=== PATIENT | male | born 1965 | race Caucasian/White ===

== ENCOUNTER 2023-08-24 08:10 | Inpatient (IN) | payer SELFPAY ==
[2023-08-24] VITALS (34 sets, daily range): BP systolic 71–156; BP diastolic 52–121; PULSE 90–202; RESP 16–42; TEMP 36–38.2; O2SAT 91–100; BMI 27.0; BMI 27.5
--- NOTE | 2023-08-24 08:28 | EKG12_ITS ---
Test Reason : ABD PAIN Blood Pressure : / mmHG Vent. Rate : 167 BPM Atrial Rate : 000 BPM P-R Int : 000 ms QRS Dur : 094 ms QT Int : 302 ms P-R-T Axes : 000 -36 103 degrees QTc Int : 503 ms Critical Test Result: High HR Atrial fibrillation with rapid ventricular response Left axis deviation Inferior infarct , age undetermined Abnormal ECG Confirmed by SALAS ARAGON, JUSTICE ([id number]), food expeditor ALICIA FITZGERALD ([id number]) on 08/25/2023 8:56:52 AM Referred By: Confirmed By:JUSTICE MARINA MD
--- NOTE | 2023-08-24 08:32 | EDS_ITS ---
HPI HPI - GI History of Present Illness Chief Complaint: Abd Pain Detail of Chief Complaint: Abdominal pain and hematemesis Informant: patient and friend Narrative Narrative: Patient brought to the emergency department by a friend today with complaint of of vomiting and generalized weakness. Patient is lost about 50 pounds in the last month. He was seen by his primary care physician and had apparently some blood work that showed an elevated WBC count and was told he might have stomach cancer apparently. Patient unable to keep liquids down. He states he has not eaten in 4 days. Generally feels weak. He tried to take some fluids and today. He denies any other medical problems although his friend says he has history of high cholesterol. Patient denies significant abdominal pain. He denies blood in the stool or black tarry stool. He states he has not vomited blood in several weeks. PFSH PFSH Allergy/AdvReac Type Severity Reaction Status Date / Time No Known Allergies Allergy Verified 08/24/23 08:11 Social History Smoking Status: Current every day smoker tobacco type: smokeless tobacco ROS ROS ED Review of Systems ROS Unobtainable: other Constitutional Constitutional ED: Reports lethargy; Denies chills, fever(s), sweats or weight loss Eyes Eyes: Denies blurry vision, change in vision or diplopia ENT ENT ED: Denies rhinorrhea or sore throat Cardiovascular Cardiovascular: Denies chest pain, orthopnea or racing heartbeat Respiratory/Chest Respiratory/Chest: Reports dyspnea and dyspnea on exertion; Denies cough, orthopnea or sputum Gastrointestinal Gastrointestinal: Reports nausea, vomiting and other Details: Hematemesis ; Denies abdominal pain or diarrhea Genitourinary Genitourinary ED: Denies dysuria, hematuria or urinary frequency Musculoskeletal Musculoskeletal: Denies arthralgias, back pain, myalgias or neck pain Integumentary Denies abscess, Abrasions or rash Neurologic Neurologic: Denies headache(s) or weakness Psychiatric Psychiatric: Denies anxiety, depression or suicidal thoughts Endocrine Endocrinology: Denies polydipsia, polyphagia or polyuria Hematologic/Lymphatic Hematologic/Lymphatic: Denies easy bleeding, easy bruising or lymphadenopathy Allergic/Immunologic Allergic/Immunologic ED: Denies mouth swelling, tongue swelling or urticaria EXAM Physical Exam Const Vital Signs: 08/24/23 08:12 08/24/23 08:15 08/24/23 09:00 Temperature 96.8 F L 98 F 98 F Temperature Source Temporal Temporal Oral Pulse Rate 94 190 H 115 H Respiratory Rate 18 26 H 18 Blood Pressure 71/52 L 138/109 H 111/89 H Blood Pressure Mean 58 118 96 Pulse Ox 91 99 100 Oxygen Delivery Method Room Air Room Air Nasal Cannula Oxygen Flow Rate (L/min) 2 08/24/23 08:38 08/24/23 08:41 08/24/23 08:41 Temperature Temperature Source Pulse Rate 156 H 190 H Respiratory Rate 19 H 26 H Blood Pressure 120/86 H 120/86 H Blood Pressure Mean 97 97 Pulse Ox Oxygen Delivery Method Oxygen Flow Rate (L/min) 08/24/23 08:45 08/24/23 09:00 08/24/23 10:01 Temperature 98 F 98 F Temperature Source Oral Oral Pulse Rate 167 H 163 H 157 H Respiratory Rate 22 H 20 H 20 H Blood Pressure 138/109 H 111/89 H 84/54 L Blood Pressure Mean 118 98 64 Pulse Ox 96 98 Oxygen Delivery Method Nasal Cannula Nasal Cannula Oxygen Flow Rate (L/min) 2 08/24/23 10:00 08/24/23 10:00 Temperature 98 F Temperature Source Oral Pulse Rate 166 H 160 H Respiratory Rate 20 H 20 H Blood Pressure 89/70 L 89/70 L Blood Pressure Mean 76 76 Pulse Ox 97 97 Oxygen Delivery Method Nasal Cannula Nasal Cannula Oxygen Flow Rate (L/min) 3 3 Positive well nourished and well developed Constitutional Narrative: Pale General Appearance ED: well developed and NAD HEENT Reports TM's clear and moist mucous membranes normocephalic and atraumatic; Negative for trauma or tenderness Tympanic Membrane ED: Yes TM's clear Eyes PERRL and EOMs intact bilaterally General Eye ED: Negative for pale conjunctiva or scleral icterus Neck no lymphadenopathy, supple and no JVD General: Negative for tenderness Chest Wall inspection of chest normal and palpation of chest normal Chest: Negative for tenderness Resp normal respiratory effort and clear to auscultation bilaterally Effort and Inspection: Negative for respiratory distress or pain with movement Auscultation: Negative for rhonchi, wheezes or diminished lung sounds Cardio regular rate, regular rhythm, S1 normal heart sound, S2 normal heart sound and no murmurs Peripheral Pulses: pulses 2+ throughout GI normal to inspection, nondistended, normoactive bowel sounds, soft to palpation, non-tender, non-distended and no masses Back/Spine no CVA tenderness and no thoracic nor lumbar tenderness Extremity normal to inspection General Extremety ED: Negative for edema General Extremity: Negative for edema Neuro oriented x3, CN's II-XII intact bilaterally, no sensory deficits noted and gait normal Sensorium / Orientation: awake, alert, oriented to person, oriented to place and oriented to time Motor Exam: strength 5/5 throughout and strength abnormal Psych mental status grossly normal Skin no rashes or lesions noted and no wounds MDM MDM MDM Narrative Medical decision making narrative: Patient had 2 large-bore IVs established. Repeat blood pressure now 138 systolic. Patient placed on a neurodiagnostic tech noted to be tachycardic. EKG obtained showed A-fib RVR with rate of 167 bpm. While observing patient on monitor it was noted that he had wide-complex tachycardia run of 8 beats. Will consult cardiology regarding medical management of this Cardizem versus amiodarone. Discussed case with Dr. Valdez who recommended Cardizem drip and heparin drip. Patient had labs ordered and has an elevated white count of 18, 000. Hemoglobin was 17. Chemistries significant for sodium of 124 and a blood glucose over 1200. Anion gap was 31. Patient with a creatinine of 3.57. CO2 was 7. Lipase elevated over 1999. Patient was ordered an insulin drip. Patient will continue to receive IV fluids. Case will be discussed with hospitalist as well as senior energy analyst to evaluate patient for admission. Patient does have a elevated lactate of 4.7. Clinically I do not think patient is septic. I suspect this is related to severe dehydration and DKA versus HHNK. Hospitalist asked that we obtain a CT scan of patient's abdomen pelvis without contrast. Lab Data Attestation: I reviewed the patient's lab results. Labs: Laboratory Results - last 24 hr 08/24/23 08:40 WBC 18.5 H RBC 5.77 Hgb 17.5 H Hct 56.8 H MCV 98.4 H MCH 30.3 MCHC 30.8 L RDW Std Deviation 50.5 H RDW Coeff of Sam 14.0 Plt Count 353 MPV 10.9 Immature Gran % (Auto) 1.900 H Neut % (Auto) 79.7 H Lymph % (Auto) 4.[address] [place] % (Auto) 12.9 H Eos % (Auto) 0.1 Baso % (Auto) 0.8 Absolute Neuts (auto) 14.8 H Absolute Lymphs (auto) 0.86 Nucleated RBC % 0 PT 15.8 H INR 1.3 Sodium 124 L Potassium 4.0 Chloride 86 L Carbon Dioxide 7.0 L* Anion Gap 31 H BUN 49 H Creatinine 3.57 H Estim Creat Clear Calc 27.29 Est GFR (MDRD) Af Amer 23 L Est GFR (MDRD) Non-Af 19 L BUN/Creatinine Ratio 13.7 Glucose 1294 H* Lactic Acid Cancelled Calcium 9.5 Magnesium 3.7 H Total Bilirubin 0.60 AST 9 L ALT 15 L Alkaline Phosphatase 123 H Troponin I High Sens 33 Total Protein 7.7 Albumin 3.6 Globulin 4.1 Albumin/Globulin Ratio 0.9 Lipase 2632 H Blood Type A POSITIVE Antibody Screen NEGATIVE Radiography Diagnostic Testing: Clinical Impression(s) from Imaging Studies Chest X-Ray 08/24/23 09:14 IMPRESSION: Normal x-ray examination of the chest. Electronically Signed: Gee Arceo MD at 9:26 EDT , EKG Initial EKG: Attestation: I personally reviewed and interpreted this EKG as follows: Comments: A-fib RVR with rate of [address] changes Critical Care Time Critical care time (excluding procedures): 30-74 minutes, Including time spent:, Discussing w/Patient &/or Family/Chain Link Fence Installer, Discussing w/Consultants, Arranging Admission or Transfer, Performing Direct Patient Care at Bedside and - (40 minutes) Discharge Plan Dx/Rx/DC Orders Clinical Impression: DKA (diabetic ketoacidosis), Acute renal failure, Hyperglycemia, Leukocytosis, Atrial fibrillation with RVR, Non-sustained ventricular tachycardia Disposition Disposition: Acute Care [facility]
--- NOTE | 2023-08-24 08:35 | NURSING ---
NO OLD EKGS
[2023-08-24] MEDS: 0.9% Normal Saline (1000mL) 1,000 ML 1000 ML IV (08:43)
[2023-08-24] MEDS: Ondansetron 4 MG/2 ML Vial IV (08:43)
[2023-08-24 09:03] LABS: Absolute Lymphocyte Count 0.86 X10^3/uL (0.83-4.51); Absolute Neutrophil Count 14.8 X10^3/uL (2.0-7.7); Basophil# 0.15 X10^3/uL; Basophil% 0.8 % (0-1); Eosinophil# 0.01 X10^3/uL; Eosinophils% 0.1 % (0-5); Hemoglobin 17.5 g/dL (13.0-16.5); Lymphocyte # 0.86 X10^3/ul (0.83-4.51); Lymphocyte % 4.6 % (19-41); Mean Corp Hgb Conc 30.8 g/dL (32-36); Mean Corpuscular Hgb 30.3 pg (27.0-32.0); Mean Corpuscular Volume 98.4 fL (80-94); Mean Platelet Vol. 10.9 fl (6.2-12.0); Monocyte# 2.38 X10^3/uL; Monocyte% 12.9 % (0-10); NRBC Flagged by Analyzer 0 % (0-5); Neutrophil # 14.76 X10^3/uL (2.7-7.7); Neutrophil % 79.7 % (47-70); POSITIVE DIFFERENTIAL YES; Platelet Count 353 K/mm3 (150-450); RBC Distribution Width SD 50.5 fl (35.1-43.9); Red Blood Count 5.77 M/mm3 (4.6-6.2); White Blood Count 18.5 K/mm3 (4.4-11.0)
[2023-08-24 09:06] LABS: Hematocrit 56.8 % (40-54)
[2023-08-24 09:07] LABS: Differential Indicated SCAN CRITERIA MET
--- NOTE | 2023-08-24 09:14 | RAD_ITS ---
STUDY: X-RAY CHEST REASON FOR EXAM: Male, 57 years old. Dyspnea TECHNIQUE: Single AP portable view of the chest. COMPARISON: None. FINDINGS: EKG electrodes are seen. The lungs are clear and expanded. There is no demonstrated pleural abnormality. Normal size heart. Normal mediastinum and my. Normal visualized pulmonary arteries. Normal visualized aortic arch and descending thoracic aorta. Normal visualized thoracic spine. Normal visualized ribs, clavicles, and shoulders. There is no demonstrated abnormality of the visualized soft tissue structures of the upper abdomen. RAD/Chest 1 View (Portable) IMPRESSION: Normal x-ray examination of the chest. Electronically Signed: Gee Arceo MD at 9:26 EDT ,
[2023-08-24] MEDS: dilTIAZem 25 MG/5 ML Vial 20 MG IV BOLUS (09:29)
[2023-08-24 09:40] LABS: ALB/GLOB Ratio 0.9 RATIO (0.9-2.4); AST(SGOT) 9 U/L (15-37); Alanine Aminotransfer ALT/SGPT 15 U/L (16-61); Albumin, Serum 3.6 g/dL (3.2-5.0); Alkaline Phosphatase 123 U/L (45-117); Anion Gap 31 (5-15); BUN 49 mg/dL (7-18); BUN/Creat Ratio 13.7 RATIO (10-20); Calcium,Total 9.5 mg/dL (8.5-10.1); Chloride 86 mmol/L (98-107); Creatinine, Serum 3.57 mg/dL (0.70-1.30); EST Glomerular Filtration Rate 19 mL/min (>60); Est Glom Filt Rate - Afr Amer 23 mL/min (>60); Estimated Creatinine Clearance 27.29 ml/min; Globulin 4.1 g/dL (2.2-4.2); Glucose 1294 mg/dL (74-106); Lipase 2632 U/L (13-75); Magnesium 3.7 mg/dL (1.6-2.6); Protein, Total 7.7 g/dL (6.4-8.2); Sodium Level 124 mmol/L (136-145)
[2023-08-24 09:45] LABS: International Normalized Ratio 1.3; Prothrombin Time (Protime)PT. 15.8 SECONDS (11.7-14.9)
--- NOTE | 2023-08-24 09:59 | PCM.HP.STD ---
HPI - General General Date of Admission: 08/24/23 Date of Service: 08/24/23 Chief Complaint: Persistent nausea and vomiting with weight loss HPI Narrative SANDY DENTON, is a 57 M who presented to [facility] ED on 08/24/2023 with 2 to 3-month history of persistent nausea and vomiting with weight loss. Patient seen at bedside in the ICU shortly after arrival over from the floor, friend present. Patient appeared fatigued but otherwise was sitting up comfortably in bed, conversing normally, in no acute distress. Patient states that until about 2 to 3 months ago, he had no significant medical problems and was not on any home medications. Notes that he had been diagnosed with high cholesterol about 2 to 3 years ago by his PCP and he had opted to try lifestyle modifications as opposed to going on medication. He does not remember if he had his blood panel rechecked after that. Patient states that about 2 to 3 months ago he began to have episodes of nausea and vomiting and with some difficulty keeping much food or drink down. He had no abdominal pain at that time and states he has not had any abdominal pain throughout the past few months. States that he has continued to struggle to keep much food or drink down over the past few months. He intermittently would tolerate some p.o. intake but noticed that he was still losing a significant amount of weight. Patient weighed about 280 pounds 2 months ago, and states that he now weighs about 230 pounds. He previously was quite muscular and now feels like he has very poor muscular definition and is consistently very fatigued and weak. Patient's friend at the bedside has been his friend for many years and confirms that patient generally has been quite healthy and this is a montes change from his baseline. Patient uses dip tobacco and goes through 1 to 2 cans/week, but his intake of this has been limited to an extent in the past few months. He rarely drinks alcohol. He denies any other drug use. He denies any polyuria or polydipsia over that timeframe. No other acute concerns. On arrival to the ED, patient was found to have several significant lab abnormalities including a blood glucose of 1294, bicarb of 7, anion gap 31, positive urine ketones and large blood acetone level that were all consistent with DKA. Patient notes no previous history of diabetes. A1c 12.4%. No previous labs available in our system for comparison. Other lab abnormalities include WBC count 18.5, sodium 124, chloride 86, creatinine 3.57, lactate 4.7, BMP otherwise benign and LFTs normal. Lipid profile showed triglycerides 442, total cholesterol 304, LDL not calculable, HDL 36. Lipase was very elevated at 2632. CT abdomen pelvis without contrast showed findings consistent with acute pancreatitis with pancreatic enlargement as well as diffuse increased markings in the peripancreatic region in the anterior pararenal spaces bilaterally. While in the ED, patient was noted to have A-fib with RVR with heart rate in the 150s and 160s. He was also noted to have some short runs of V. tach. ED discussed with Dr. Valdez with Cardiology and he was started on both cardizem and heparin drips. Patient had fairly quick improvement in heart rate to the 100s to 110s on Cardizem. Patient was also started on insulin drip for DKA. Hospitalist was then contacted for admission to the ICU for further management. [facility] Medical History (Updated 08/24/23 @ 21:[address] Laureano Rahman, ) High cholesterol Home Medications NK 08/24/23 [History Last Taken Unknown] Allergy/AdvReac Type Severity Reaction Status Date / Time No Known Allergies Allergy Verified 08/24/23 08:11 Social History Smoking Status: Current every day smoker tobacco type: smokeless tobacco ROS Constitutional Constitutional: Reports fatigue, malaise and weakness; Denies chills or fever(s) Eyes Eyes: Denies change in vision Cardiovascular Cardiovascular: Denies chest pain, dyspnea on exertion, edema, lightheadedness, palpitations, rapid heart rate or syncope Respiratory/Chest Respiratory/Chest: Denies cough, shortness of breath at rest or wheezing Gastrointestinal Gastrointestinal: Reports dyspepsia, nausea and vomiting; Denies abdominal pain, constipation, diarrhea, hematemesis or hematochezia Genitourinary Genitourinary: Denies dysuria or urinary frequency Musculoskeletal Musculoskeletal: Denies arthralgias, back pain or myalgias Neurologic Neurologic: Denies dizziness, focal weakness, headache(s), numbness or paresthesias Endocrine Endocrinology: Denies polydipsia or polyuria Vital Signs Vital Signs Vital Signs: 08/24/23 08:12 08/24/23 08:15 08/24/23 09:00 Temperature 96.8 F L 98 F 98 F Temperature Source Temporal Temporal Oral Pulse Rate 94 190 H 115 H Respiratory Rate 18 26 H 18 Blood Pressure 71/52 L 138/109 H 111/89 H Blood Pressure Mean 58 118 96 Pulse Ox 91 99 100 Oxygen Delivery Method Room Air Room Air Nasal Cannula Oxygen Flow Rate (L/min) 2 08/24/23 08:38 08/24/23 08:41 08/24/23 08:41 Temperature Temperature Source Pulse Rate 156 H 190 H Respiratory Rate 19 H 26 H Blood Pressure 120/86 H 120/86 H Blood Pressure Mean 97 97 Pulse Ox Oxygen Delivery Method Oxygen Flow Rate (L/min) 08/24/23 08:45 08/24/23 09:00 Temperature 98 F Temperature Source Oral Pulse Rate 167 H 163 H Respiratory Rate 22 H 20 H Blood Pressure 138/109 H 111/89 H Blood Pressure Mean 118 98 Pulse Ox 96 Oxygen Delivery Method Nasal Cannula Oxygen Flow Rate (L/min) 2 Weight Weight: 98.1 kg Body Mass Index (BMI) 27.0 Physical Exam Const alert, oriented x3 and no apparent distress Constitutional Narrative: Pleasant middle-age male, mildly fatigued appearing and cognition appears slightly slowed, otherwise sitting up comfortably in bed, conversing normally, in no acute distress. General Appearance: cooperative and comfortable HEENT normocephalic, head/scalp atraumatic, hearing grossly normal bilaterally and nasal mucous membranes and turbinates normal HEENT Narrative: Dry mucous membranes. Eyes PERRL, EOMs intact bilaterally and conjunctivae normal Neck full ROM Chest inspection of chest normal Resp normal respiratory effort, normal air movement, no use of accessory muscles and clear to auscultation bilaterally Cardio regular rate, regular rhythm, no murmurs and peripheral pulses 2+ throughout GI normal to inspection, nondistended, normoactive bowel sounds, soft to palpation, non-tender and non-distended Back/Spine normal ROM Extremity normal to inspection, full ROM and no pedal edema Skin no rashes or lesions noted Neuro moves all extremities and no focal motor deficits Speech: speech normal Psych mental status grossly normal Results Lab / Micro Data 08/24/23 08:40 08/24/23 17:20 Labs: Laboratory Results - last 24 hr 08/24/23 08:40: WBC 18.5 H, RBC 5.77, Hgb 17.5 H, Hct 56.8 H, MCV 98.4 H, MCH 30.3, MCHC 30.8 L, RDW Std Deviation 50.5 H, RDW Coeff of Sam 14.0, Plt Count 353, MPV 10.9, Immature Gran % (Auto) 1.900 H, Neut % (Auto) 79.7 H, Lymph % (Auto) 4.6 L, [place] % (Auto) 12.9 H, Eos % (Auto) 0.1, Baso % (Auto) 0.8, Absolute Neuts (auto) 14.8 H, Absolute Lymphs (auto) 0.86, Nucleated RBC % 0, PT 15.8 H, INR 1.3, Sodium 124 L, Potassium 4.0, Chloride 86 L, Carbon Dioxide 7.0 L*, Anion Gap 31 H, BUN 49 H, Creatinine 3.57 H, Estim Creat Clear Calc 27.29, Est GFR (MDRD) Af Amer 23 L, Est GFR (MDRD) Non-Af 19 L, BUN/Creatinine Ratio 13.7, Glucose 1294 H*, Lactic Acid Cancelled, Calcium 9.5, Magnesium 3.7 H, Total Bilirubin 0.60, AST 9 L, ALT 15 L, Alkaline Phosphatase 123 H, Total Protein 7.7, Albumin 3.6, Globulin 4.1, Albumin/Globulin Ratio 0.9, Lipase 2632 H, Blood Type A POSITIVE, Antibody Screen NEGATIVE Imaging Radiology Impression Chest X-Ray 08/24/23 09:14 IMPRESSION: Normal x-ray examination of the chest. Electronically Signed: Gee Arceo MD at 9:26 EDT , Assessment & Plan Assessment/Plan (1) Non-sustained ventricular tachycardia: (2) Atrial fibrillation with RVR: (3) Leukocytosis: (4) DKA (diabetic ketoacidosis): (5) LONI (acute kidney injury): (6) Acute pancreatitis: PLAN: Plan Patient is a 57-year-old male who presented to [facility] ED on 08/24/2023 with 2 to 3-month history of worsening nausea and vomiting with weight loss. 1. DKA, new onset diabetes mellitus Labs on admit consistent with DKA as noted in HPI. A1c 12.4%. No previous labs for comparison. Unclear if patient has new onset type 2 diabetes mellitus and also hypertriglyceridemia that were both contributing to him developing acute pancreatitis, or if he could have some degree of a functional type 1 diabetes secondary to ongoing acute pancreatitis. Patient was overweight with reported fairly poor eating habits but has no significant family history of type 2 diabetes that he notes and he denied classic diabetes symptoms of polyuria and polydipsia over the past 2 to 3 months. ? Admit under inpatient status to the ICU. Continue insulin drip that was started in the ED. N.p.o. while on insulin drip. Monitor BMP every 4 hours. Electrolyte replacement per DKA order set protocol. Has gotten significant IV fluid replacement to this point, continue LR 150 ml/hr for now. family living educator consulted. Direct Marketing Representative consulted. 2. Acute pancreatitis Lipase [address] abdomen pelvis with findings consistent with acute pancreatitis. Unusual presentation as patient reports significant nausea with vomiting and weight loss over 2 to 3 months but denies any abdominal pain over that timeframe. Etiology unclear at this time. Minimal alcohol use history. LFTs normal with no evidence of bile duct or gallbladder issues. Triglycerides are elevated to the 400s, so it seems that hypertriglyceridemia may be the most likely cause of pancreatitis at this point. ? Continue IV fluids as noted above. Started on atorvastatin 80 mg daily as noted below. N.p.o. for now while on insulin drip. GI consulted for further recommendations. 3. New onset A-fib with RVR with short episodes of ventricular tachycardia Noted in the ED to have A-fib with RVR with heart rate in the 160s. Also noted to have short runs of V. tach at that time. Discussed with on-call cardiology and was started on Cardizem drip and heparin drip at that time. Had good improvement in heart rate to 100s to 110s on Cardizem drip. Patient denies any history of palpitations. ? Cardiology consulted. Continue Cardizem drip and heparin drip for now. Echo ordered. 4. LONI, improving Creatinine 3.57, BUN 49 on admit. No previous labs for comparison. Prerenal LONI secondary to severe volume depletion seems most likely. CT abdomen pelvis showed normal bladder, prostatic calcifications but no BPH, normal kidneys. UA showed 30 protein, random total protein in urine elevated at 64, protein/creatinine ratio very elevated at 2744. FeNa 2.4%, more consistent with intrinsic renal disease. ? Monitoring BMP every 4 hours for now as noted above. Patient has had good improvement in kidney function with this checks presumed secondary to heavy IV fluid administration, most recent creatinine 1.99 on evening of 08/23. Continue to monitor BMP and urine output. 5. Hyperlipidemia and hypertriglyceridemia ? Lipid profile showed triglycerides 442, total cholesterol 304, LDL not calculable, HDL 36. Started on atorvastatin 80 mg daily on 08/23. Recommend checking repeat lipid profile in 8 to 12 weeks. 6. Leukocytosis ? WBC count 18.5 on admit. Suspect primarily secondary to acute stress state from DKA and pancreatitis along with dehydration. Follow-up a.m. CBC. 7. Tobacco abuse ? Uses dip tobacco regularly. Encouraged cessation. Nicotine replacement therapy available as needed. DVT prophylaxis: Heparin drip CODE STATUS: Full code, verified Expected disposition: Home, TBD Total clinical time spent by myself addressing the patient's medical issues, reviewing all the data, and collaborating with patient's care team: 75 minutes. Charges/Coding Visit Charges Inpatient E&M: 83381 Init Hosp L3
[2023-08-24] MEDS: Diltiazem 125 MG in Dextrose 5%-Water (100mL Bag) 100 ML CONT INF (10:01)
[2023-08-24 10:03] LABS: Troponin-I HS 33 pg/mL (3.0-78.0)
[2023-08-24] MEDS: Insulin Lispro 100 UNIT in 0.9% Normal Saline (100mL Bag) 99 ML 9.8 UNIT CONT INF (10:11)
--- NOTE | 2023-08-24 10:13 | NURSING ---
ICU MOSTELLER DKA VS HHS, ACUTE PANCREATITIS
[2023-08-24 10:24] LABS: Lactic Acid 4.7 mmol/L (0.4-1.9)
[2023-08-24] MEDS: 0.9% Normal Saline (1000mL) 1,000 ML 999 ML IV (10:26)
[2023-08-24 10:36] LABS: Partial Thromboplast Time 26.5 Seconds (24.1-36.2)
[2023-08-24] MEDS: Heparin Injection (Vial) 5,000 UNIT/ML VIAL 7500 UNIT IV (10:40)
[2023-08-24] MEDS: HEPARIN/D5w 25,000 UNITS 25,000 UNITS/250 ML IV.SOLN. 14 UNITS CONT INF (10:47)
[2023-08-24] MEDS: Mag Hydrox/Al Hydrox/Simeth 30 ML UDC PO (10:51)
[2023-08-24 11:04] LABS: Bedside Glucose > 500 mg/dL (74-106)
[2023-08-24 11:25] LABS: Mucous, Urine 0 SEEN /hpf (<or=2+); White Blood Cells 0 SEEN /hpf (0-5)
[2023-08-24 11:26] LABS: Cholesterol 304 mg/dL (200); High Density Lipoprotein 36 mg/dL; Triglycerides 442 mg/dL
--- NOTE | 2023-08-24 11:28 | CT_ITS ---
STUDY: CT ABDOMEN AND PELVIS WITHOUT CONTRAST REASON FOR EXAM: Male, 57 years old. vomit ting, abdominal pain RADIATION DOSAGE (If Supplied By Facility): CTDIvol = ( 16.21 ) mGy, DLP = ( 2026.90 ) mGycm TECHNIQUE: Transaxial images were obtained from the dome of the diaphragm to the symphysis pubis without oral contrast, and without intravenous contrast. Sagittal and coronal images were reconstructed. Individualized dose optimization techniques were used for this CT. COMPARISON: None. FINDINGS: The visualized lung bases are unremarkable. The visualized portions of the heart are within normal limits. Normal liver. Normal gallbladder and extrahepatic biliary system. Normal spleen. There is diffuse enlargement of the pancreas with janee-pancreatic edema suggesting acute pancreatitis. Normal bilateral adrenal glands. Normal right kidney. Normal left kidney. There is a small hiatal hernia. Normal small intestine. Normal colon. The appendix is visualized and appears normal. Normal abdominal aorta. Normal inferior vena cava. Normal retroperitoneum. Normal urinary bladder. There are prostatic calcifications. There is a left-sided inguinal hernia containing adipose tissue. Normal osseous structures. CT/Abdomen/Pelvis without Cont IMPRESSION: Findings in keeping with acute pancreatitis with pancreatic enlargement and diffuse increased markings in the peripancreatic region as well as the anterior pararenal spaces bilaterally. Electronically Signed: Gee Arceo MD at 11:44 EDT ,
[2023-08-24 11:57] LABS: Color, Urine Yellow (Yellow); Glucose, Dipstick 1000 mg/dl (Normal); Leukocyte Esterase-Dipstick Negative /ul (Negative); Nitrite-Dipstick Negative (Negative); Occult Blood-Urine 250 /ul (Negative); Protein-Dipstick 30 mg/dl (Negative); Specific Gravity, Urine 1.015 (1.002-1.030); Urine Bilirubin Dipstick Negative (Negative); Urine Clarity Clear (Clear); Urine Urobilinogen Normal (Normal)
[2023-08-24 12:01] LABS: Ketone-Dipstick 150 mg/dl (Negative)
[2023-08-24 12:04] LABS: Red Blood Cells-Urine 0-5 SEEN /hpf (0-5); Squamous Epithelial Cells - UA 0-5 SEEN /hpf (0-5)
[2023-08-24 12:05] LABS: Bacteria RARE /hpf (None Seen)
[2023-08-24] MEDS: 0.9% Normal Saline (1000mL) 1,000 ML 200 ML IV (12:26)
[2023-08-24 12:35] LABS: Bedside Glucose > 500 mg/dL (74-106)
[2023-08-24 13:15] LABS: Anion Gap 25 (5-15); BUN 48 mg/dL (7-18); BUN/Creat Ratio 17.8 RATIO (10-20); Chloride 103 mmol/L (98-107); EST Glomerular Filtration Rate 26 mL/min (>60); Est Glom Filt Rate - Afr Amer 31 mL/min (>60); Estimated Creatinine Clearance 38.04 ml/min; Glucose 878 mg/dL (74-106); Potassium 4.3 mmol/L (3.5-5.1); Sodium Level 135 mmol/L (136-145)
[2023-08-24 13:40] LABS: Bedside Glucose > 500 mg/dL (74-106)
[2023-08-24 13:43] LABS: Reflex Lactate? Y
[2023-08-24 13:59] LABS: Amphetamine Urine VISTA NEGATIVE (<1000 ng/mL); Barbiturate Urine VISTA NEGATIVE (< 200 ng/mL); Benzodiazepine Urine VISTA NEGATIVE (< 200 ng/mL); Cocaine Urine VISTA NEGATIVE (< 300 ng/mL); Ecstacy Urine VISTA NEGATIVE (< 500 ng/mL); Methadone Urine VISTA NEGATIVE (< 300 ng/mL); PCP Urine VISTA NEGATIVE (< 25 ng/mL); THC Urine VISTA NEGATIVE (< 50 ng/mL); Vista UDS pH Range 5
[2023-08-24 14:01] LABS: Hemoglobin A1c 12.4 % (3.8-5.6)
[2023-08-24] MEDS: Lactated Ringers 1,000 ML 150 ML IV ×2 (14:17→20:16)
[2023-08-24 15:04] LABS: Bedside Glucose > 500 mg/dL (74-106)
[2023-08-24 15:05] LABS: Glucose 705 mg/dL (74-106)
[2023-08-24 15:48] LABS: Lactic Acid 2.7 mmol/L (0.4-1.9)
[2023-08-24 16:17] LABS: Alcohol, Blood (Medical)-Serum < 3.0 mg/dL
[2023-08-24 16:26] LABS: Bedside Glucose 428 mg/dL (74-106)
[2023-08-24 17:30] LABS: Bedside Glucose 415 mg/dL (74-106)
[2023-08-24 17:43] LABS: Partial Thromboplast Time 86.6 Seconds (24.1-36.2)
[2023-08-24 17:55] LABS: Protein, Urine (Random) 64.2 mg/dL (<11.9); Protein:Creat Ratio 2744 mg/g CRE (0-200); Urine Sodium 18 mmol/L (Not Establ.)
[2023-08-24 18:08] LABS: Anion Gap 17 (5-15); BUN 44 mg/dL (7-18); BUN/Creat Ratio 19.8 RATIO (10-20); Calcium,Total 9.1 mg/dL (8.5-10.1); Chloride 108 mmol/L (98-107); Creatinine, Serum 2.22 mg/dL (0.70-1.30); EST Glomerular Filtration Rate 33 mL/min (>60); Est Glom Filt Rate - Afr Amer 39 mL/min (>60); Estimated Creatinine Clearance 46.27 ml/min; Glucose 444 mg/dL (74-106); Potassium 3.8 mmol/L (3.5-5.1); Sodium Level 141 mmol/L (136-145)
[2023-08-24] MEDS: Diltiazem 125 MG in Dextrose 5%-Water (100mL Bag) 100 ML 15 MG CONT INF (18:23)
[2023-08-24 18:33] LABS: Bedside Glucose 385 mg/dL (74-106)
--- NOTE | 2023-08-24 18:38 | ECHOCS_ITS ---
Reason For Study: AFIB Procedure This was a 2D Doppler, Color Flow transthoracic echocardiogram. The study was technically difficult. Contrast injection was performed. Exam performed portable in ICU/CCU. Left Ventricle Normal left ventricle. The estimated ejection fraction is 40-45 %. Right Ventricle Normal right ventricle. Normal systolic function. Atria Normal left atrium. Normal right atrium. Mitral Valve The mitral valve is structurally normal. No prolapse or stenosis seen. Tricuspid Valve Normal tricuspid valve. Aortic Valve Trisinus/trileaflet aortic valve. Pulmonic Valve The pulmonic valve is not well visualized. Pericardium/Pleural No pericardial effusion. Medication Diluted definity 2ml given slow IV push to enhance endocardial definition. MMode/2D Measurements & Calculations LVIDd: 5.6 cm IVSd: 0.99 cm Ao root diam: 3.7 cm LVIDs: 4.1 cm LVPWd: 0.92 cm RVDd: 3.5 cm FS: 27.5 % LAV(MOD-bp): 60.8 ml LVAd ap4: 34.8 cm2 SV(MOD-sp4): 49.5 ml LAV(MOD-bp) Indexed: 26.0 ml/m2 LVLd ap4: 9.0 cm LAV(MOD-sp2): 77.7 ml EDV(MOD-sp4): 111.8 ml LAV(MOD-sp4): 46.7 ml EDV(sp4-el): 114.2 ml LVAs ap4: 24.1 cm2 LVLs ap4: 7.8 cm ESV(MOD-sp4): 62.3 ml ESV(sp4-el): 63.3 ml EF(MOD-sp4): 44.3 % EF(sp4-el): 44.6 % SV(sp4-el): 50.9 ml LA A4 area: 19.5 cm2 LA dimension(2D): 3.6 cm RA A4 area: 15.3 cm2 TAPSE: 1.3 cm Time Measurements MV dec time: 0.20 sec Doppler Measurements & Calculations MV E max ar: 60.1 cm/sec Lat Peak E' Ar: 15.5 cm/sec Med Peak E' Ar: 7.4 cm/sec MV A max ar: 40.2 cm/sec E/E' lat: 3.9 E/E' med: 8.1 MV E/A: 1.5 MV V2 max: 69.2 cm/sec Ao V2 max: 111.9 cm/sec MV max P.9 mmHg MV dec slope: 335.5 cm/sec2 Ao max P.0 mmHg MV V2 mean: 32.8 cm/sec Ao V2 mean: 78.8 cm/sec MV mean P.53 mmHg Ao mean P.8 mmHg MV V2 VTI: 17.5 cm Ao V2 VTI: 21.0 cm AV (velocity ratio): 0.70 LV V1 max: 98.9 cm/sec LV V1 max P.9 mmHg LV V1 mean P.3 mmHg LV V1 mean: 69.9 cm/sec LV V1 VTI: 14.7 cm ECHO/Echo Complete W/ Contrast Interpretation Summary The estimated ejection fraction is 40-45 %. Apical Hypokinesia Ordering Physician: Carlota Valdez Referring Physician: VINEET ZHONG Performed By: Carolina Zee RCS
[2023-08-24] MEDS: Atorvastatin Calcium 80 MG Tablet PO (20:16)
[2023-08-24 20:25] LABS: Bedside Glucose 348 mg/dL (74-106)
[2023-08-24 21:50] LABS: Anion Gap 14 (5-15); BUN 41 mg/dL (7-18); BUN/Creat Ratio 20.6 RATIO (10-20); Calcium,Total 8.9 mg/dL (8.5-10.1); Chloride 109 mmol/L (98-107); Creatinine, Serum 1.99 mg/dL (0.70-1.30); EST Glomerular Filtration Rate 37 mL/min (>60); Est Glom Filt Rate - Afr Amer 45 mL/min (>60); Estimated Creatinine Clearance 51.61 ml/min; Glucose 372 mg/dL (74-106); Potassium 4.1 mmol/L (3.5-5.1); Sodium Level 142 mmol/L (136-145)
[2023-08-24 22:27] LABS: Bedside Glucose 332 mg/dL (74-106)
[2023-08-25] VITALS (20 sets, daily range): BP systolic 102–137; BP diastolic 62–76; PULSE 72–100; RESP 16–24; TEMP 36.5–37.2; O2SAT 93–99; BMI 26.1
[2023-08-25] MEDS: 0.9% Saline Lock 10 ML Syringe IV ×8 (00:02→22:21)
[2023-08-25 00:26] LABS: Partial Thromboplast Time 73.1 Seconds (24.1-36.2)
[2023-08-25 01:26] LABS: Bedside Glucose 304 mg/dL (74-106)
[2023-08-25 01:26] LABS: Bedside Glucose 352 mg/dL (74-106)
[2023-08-25 01:39] LABS: Anion Gap 13 (5-15); BUN 39 mg/dL (7-18); BUN/Creat Ratio 20.6 RATIO (10-20); Chloride 109 mmol/L (98-107); Creatinine, Serum 1.89 mg/dL (0.70-1.30); EST Glomerular Filtration Rate 39 mL/min (>60); Est Glom Filt Rate - Afr Amer 47 mL/min (>60); Estimated Creatinine Clearance 54.35 ml/min; Glucose 308 mg/dL (74-106); Potassium 3.8 mmol/L (3.5-5.1); Sodium Level 141 mmol/L (136-145)
[2023-08-25 02:20] LABS: Bedside Glucose 306 mg/dL (74-106)
[2023-08-25] MEDS: Ondansetron 4 MG/2 ML Vial IV ×2 (02:30→11:17)
[2023-08-25] MEDS: Lactated Ringers 1,000 ML 150 ML IV (03:03)
[2023-08-25] MEDS: Diltiazem 125 MG in Dextrose 5%-Water (100mL Bag) 100 ML 15 MG CONT INF (03:03)
[2023-08-25] MEDS: Insulin Lispro 100 UNIT in 0.9% Normal Saline (100mL Bag) 99 ML CONT INF (04:41)
[2023-08-25] MEDS: HEPARIN/D5w 25,000 UNITS 25,000 UNITS/250 ML IV.SOLN. 13 UNITS CONT INF (04:42)
[2023-08-25 05:22] LABS: Bedside Glucose 255 mg/dL (74-106)
[2023-08-25 05:22] LABS: Bedside Glucose 242 mg/dL (74-106)
[2023-08-25 05:22] LABS: Bedside Glucose 288 mg/dL (74-106)
[2023-08-25] MEDS: KCL 20MEQ in D5.45NS 20 MEQ/1,000 ML IV.SOLN. 150 MEQ IV (05:43)
[2023-08-25 05:46] LABS: Hematocrit 43.6 % (40-54); Hemoglobin 15.3 g/dL (13.0-16.5); Mean Corp Hgb Conc 35.1 g/dL (32-36); Mean Corpuscular Hgb 30.5 pg (27.0-32.0); Mean Corpuscular Volume 86.9 fL (80-94); Mean Platelet Vol. 9.8 fl (6.2-12.0); Platelet Count 214 K/mm3 (150-450); RBC Distribution Width CV 13.6 % (11.6-14.6); RBC Distribution Width SD 42.7 fl (35.1-43.9); Red Blood Count 5.02 M/mm3 (4.6-6.2); White Blood Count 15.3 K/mm3 (4.4-11.0)
[2023-08-25 06:00] LABS: Anion Gap 14 (5-15); BUN 38 mg/dL (7-18); BUN/Creat Ratio 22.9 RATIO (10-20); Calcium,Total 8.9 mg/dL (8.5-10.1); Chloride 110 mmol/L (98-107); Creatinine, Serum 1.66 mg/dL (0.70-1.30); EST Glomerular Filtration Rate 46 mL/min (>60); Est Glom Filt Rate - Afr Amer 55 mL/min (>60); Estimated Creatinine Clearance 61.88 ml/min; Glucose 242 mg/dL (74-106); Potassium 3.2 mmol/L (3.5-5.1); Sodium Level 144 mmol/L (136-145)
[2023-08-25 06:16] LABS: Bedside Glucose 217 mg/dL (74-106)
[2023-08-25 07:13] LABS: Bedside Glucose 258 mg/dL (74-106)
--- NOTE | 2023-08-25 08:01 | PCM.CONS.C ---
Documented by User: Amanda OKEEFE, MALDONADO 08/25/23 10:37 Assessment & Plan Assessment/Plan (1) Atrial fibrillation with RVR: (2) Non-sustained ventricular tachycardia: PLAN: Plan Patient did convert to sinus rhythm. Feel that it is okay to stop his IV Cardizem and just continue with metoprolol upon discharge. Feel that he can also be started on Eliquis and his heparin be discontinued. Echocardiogram is pending. If this is normal feel that patient can be followed up with us on an outpatient basis. Will sign off for now. If any additional input is needed please do not hesitate to call. HPI Consult Data Date of Consult: 08/25/23 HPI Narrative HPI Narrative: SANDY DENTON, is a 57 M who presented to [facility] ER on 08/24/2023 with persistent nausea vomiting and weight loss. He was of a blood glucose of 1294. While in the emergency room he was noted to have atrial fibrillation with RVR. He was also noted to have some short runs of VT. He was started on Cardizem and heparin. His heart rate did improve. He was admitted for DKA, new onset diabetes, acute pancreatitis, atrial fibrillation with RVR with short runs of ventricular tachycardia, hyperlipidemia with hypertriglyceridemia and acute kidney injury. These diagnoses are all new to patient. He does state that he does feel better than yesterday when he came into the emergency room. [facility] Medical History (Updated 08/24/23 @ 21:[address] Laureano Rahman, ) High cholesterol Home Medications NK 08/24/23 [History Last Taken Unknown] Allergy/AdvReac Type Severity Reaction Status Date / Time No Known Allergies Allergy Verified 08/24/23 08:11 Social History Smoking Status: Current every day smoker tobacco type: smokeless tobacco ROS Constitutional Constitutional: Reports fatigue, malaise and weakness; Denies chills or fever(s) Eyes Eyes: Denies change in vision Cardiovascular Cardiovascular: Denies chest pain, dyspnea on exertion, edema, lightheadedness, palpitations, rapid heart rate or syncope Respiratory/Chest Respiratory/Chest: Denies cough, shortness of breath at rest or wheezing Gastrointestinal Gastrointestinal: Reports dyspepsia, nausea and vomiting; Denies abdominal pain, constipation, diarrhea, hematemesis or hematochezia Genitourinary Genitourinary: Denies dysuria or urinary frequency Musculoskeletal Musculoskeletal: Denies arthralgias, back pain or myalgias Neurologic Neurologic: Denies dizziness, focal weakness, headache(s), numbness or paresthesias Endocrine Endocrinology: Denies polydipsia or polyuria Physical Exam Const alert, oriented x3 and no apparent distress General Appearance: cooperative and comfortable HEENT normocephalic, head/scalp atraumatic, hearing grossly normal bilaterally and nasal mucous membranes and turbinates normal Eyes PERRL, EOMs intact bilaterally and conjunctivae normal Neck full ROM Chest inspection of chest normal Resp normal respiratory effort, normal air movement, no use of accessory muscles and clear to auscultation bilaterally Cardio regular rate, regular rhythm, no murmurs and peripheral pulses 2+ throughout GI normal to inspection, nondistended, normoactive bowel sounds, soft to palpation, non-tender and non-distended Extremity normal to inspection, full ROM and no pedal edema Skin no rashes or lesions noted Neuro moves all extremities and no focal motor deficits Speech: speech normal Psych mental status grossly normal Risk Stratification Risk Stratification Applicable: No Charges/Coding Visit Charges Office Visits / Consults: 51135 IP Consult L3 Objective Data Vital Signs: Vital Signs Temp Pulse Resp BP Pulse Ox O2 Del Method O2 Flow Rate 98.9 F 87 20 H 120/65 97 Room Air 2 08/25/23 06:00 08/25/23 07:00 08/25/23 07:00 08/25/23 07:00 08/25/23 07:00 08/25/23 07:00 08/24/23 17:00 Oxygen Flow Rate (L/min) 2 Oxygen Delivery Method Room Air Weight: 221 lb 1.978 oz Body Mass Index (BMI) 26.1 Intake & Output: Intake and Output for Last 24 Hours 08/23/23 08/24/23 08/25/23 23:59 23:59 23:59 Intake Total 3623.60 / 3641.10 1609.97 / 1609.97 Output Total 1999 500 / 500 Balance 1623.60 / 1641.10 1109.97 / 1109.97 Lab / Micro Data 08/25/23 05:38 08/25/23 10:00 Labs: Laboratory Results - last 24 hr 08/24/23 08:40: WBC 18.5 H, RBC 5.77, Hgb 17.5 H, Hct 56.8 H, MCV 98.4 H, MCH 30.3, MCHC 30.8 L, RDW Std Deviation 50.5 H, RDW Coeff of Sam 14.0, Plt Count 353, MPV 10.9, Immature Gran % (Auto) 1.900 H, Neut % (Auto) 79.7 H, Lymph % (Auto) 4.6 L, [place] % (Auto) 12.9 H, Eos % (Auto) 0.1, Baso % (Auto) 0.8, Absolute Neuts (auto) 14.8 H, Absolute Lymphs (auto) 0.86, Nucleated RBC % 0, PT 15.8 H, INR 1.3, Sodium 124 L, Potassium 4.0, Chloride 86 L, Carbon Dioxide 7.0 L*, Anion Gap 31 H, BUN 49 H, Creatinine 3.57 H, Estim Creat Clear Calc 27.29, Est GFR (MDRD) Af Amer 23 L, Est GFR (MDRD) Non-Af 19 L, BUN/Creatinine Ratio 13.7, Glucose 1294 H*, Lactic Acid Cancelled, Calcium 9.5, Magnesium 3.7 H, Total Bilirubin 0.60, AST 9 L, ALT 15 L, Alkaline Phosphatase 123 H, Troponin I High Sens 33, Total Protein 7.7, Albumin 3.6, Globulin 4.1, Albumin/Globulin Ratio 0.9, Lipase 2632 H, Blood Type A POSITIVE, Antibody Screen NEGATIVE 08/24/23 09:35: Lactic Acid 4.7 H* 08/24/23 10:17: APTT 26.5, Triglycerides 442 H, Cholesterol 304 H, LDL Cholesterol TNP, VLDL Cholesterol TNP, HDL Cholesterol 36 L, Acetone Level LARGE H 08/24/23 10:45: POC Glucose > 500 H* 08/24/23 11:20: Urine Color Yellow, Urine Clarity Clear, Urine pH 5.0, Ur Specific [place] 1.015, Urine Protein 30 H, Urine Glucose (UA) 1000 H, Urine Ketones 150 A*, Urine Occult Blood 250 H, Urine Nitrite Negative, Urine Bilirubin Negative, Urine Urobilinogen Normal, Ur Leukocyte Esterase Negative, Urine RBC 0-5 SEEN, Urine WBC 0 SEEN, Ur Squamous Epith Cells 0-5 SEEN, Urine Bacteria RARE, Urine Mucus 0 SEEN, U Random Total Protein 64.2 H, Ur Random Sodium 18, Urine Creatinine 23.40, Protein/Creatinin Ratio 2744 H, Urine Opiates Screen NEGATIVE, Urine Methadone Screen NEGATIVE, Ur Barbiturates Screen NEGATIVE, Ur Phencyclidine Scrn NEGATIVE, Ur Amphetamines Screen NEGATIVE, MDMA (Ecstasy) Screen NEGATIVE, U Benzodiazepines Scrn NEGATIVE, Urine Cocaine Screen NEGATIVE, U Cannabinoids Screen NEGATIVE, Ur Drug Screen Comment 08/24/23 12:17: POC Glucose > 500 H* 08/24/23 12:20: Sodium 135 L, Potassium 4.3, Chloride 103, Carbon Dioxide 7.0 L*, Anion Gap 25 H, BUN 48 H, Creatinine 2.70 H, Estim Creat Clear Calc 38.04, Est GFR (MDRD) Af Amer 31 L, Est GFR (MDRD) Non-Af 26 L, BUN/Creatinine Ratio 17.8, Glucose 878 H*, Hemoglobin A1c 12.4 H, Calcium 9.0 08/24/23 13:21: POC Glucose > 500 H* 08/24/23 13:30: Glucose 705 H* 08/24/23 14:45: POC Glucose > 500 H* 08/24/23 15:00: Lactic Acid 2.7 H*, Ethyl Alcohol < 3.0 08/24/23 16:06: POC Glucose 428 H 08/24/23 17:07: POC Glucose 415 H 08/24/23 17:20: APTT 86.6 H, Sodium 141, Potassium 3.8, Chloride 108 H, Carbon Dioxide 16.0 L, Anion Gap 17 H, BUN 44 H, Creatinine 2.22 H, Estim Creat Clear Calc 46.27, Est GFR (MDRD) Af Amer 39 L, Est GFR (MDRD) Non-Af 33 L, BUN/Creatinine Ratio 19.8, Glucose 444 H, Calcium 9.1 08/24/23 18:12: POC Glucose 385 H 08/24/23 19:59: POC Glucose 348 H 08/24/23 21:14: Sodium 142, Potassium 4.1, Chloride 109 H, Carbon Dioxide 19.0 L, Anion Gap 14, BUN 41 H, Creatinine 1.99 H, Estim Creat Clear Calc 51.61, Est GFR (MDRD) Af Amer 45 L, Est GFR (MDRD) Non-Af 37 L, BUN/Creatinine Ratio 20.6 H, Glucose 372 H, Calcium 8.9 08/24/23 22:08: POC Glucose 332 H 08/24/23 23:55: POC Glucose 352 H 08/24/23 23:57: APTT 73.1 H 08/25/23 01:00: Sodium 141, Potassium 3.8, Chloride 109 H, Carbon Dioxide 19.0 L, Anion Gap 13, BUN 39 H, Creatinine 1.89 H, Estim Creat Clear Calc 54.35, Est GFR (MDRD) Af Amer 47 L, Est GFR (MDRD) Non-Af 39 L, BUN/Creatinine Ratio 20.6 H, Glucose 308 H, Calcium 9.0 08/25/23 01:03: POC Glucose 304 H 08/25/23 01:58: POC Glucose 306 H 08/25/23 02:58: POC Glucose 288 H 08/25/23 03:02: Acetone Level SMALL H 08/25/23 04:10: POC Glucose 255 H 08/25/23 05:03: POC Glucose 242 H 08/25/23 05:38: WBC 15.3 H, RBC 5.02, Hgb 15.3, Hct 43.6, MCV 86.9 D, MCH 30.5, MCHC 35.1 D, RDW Std Deviation 42.7, RDW Coeff of Sam 13.6, Plt Count 214, MPV 9.8, APTT 55.0 H, Sodium 144, Potassium 3.2 L, Chloride 110 H, Carbon Dioxide 20.0 L, Anion Gap 14, BUN 38 H, Creatinine 1.66 H, Estim Creat Clear Calc 61.88, Est GFR (MDRD) Af Amer 55 L, Est GFR (MDRD) Non-Af 46 L, BUN/Creatinine Ratio 22.9 H, Glucose 242 H, Calcium 8.9 08/25/23 05:58: POC Glucose 217 H 08/25/23 06:51: POC Glucose 258 H 08/25/23 06:57: Acetone Level LARGE H Cardiology Labs/Tests 08/24/23 08:40: WBC 18.5 H, RBC 5.77, Hgb 17.5 H, Hct 56.8 H, MCV 98.4 H, MCH 30.3, MCHC 30.8 L, Plt Count 353, MPV 10.9, Immature Gran % (Auto) 1.900 H, Neut % (Auto) 79.7 H, Lymph % (Auto) 4.6 L, [place] % (Auto) 12.9 H, Eos % (Auto) 0.1, Baso % (Auto) 0.8, Absolute Neuts (auto) 14.8 H, Nucleated RBC % 0, PT 15.8 H, INR 1.3, Sodium 124 L, Potassium 4.0, Chloride 86 L, Carbon Dioxide 7.0 L*, Anion Gap 31 H, BUN 49 H, Creatinine 3.57 H, Est GFR (MDRD) Af Amer 23 L, Est GFR (MDRD) Non-Af 19 L, BUN/Creatinine Ratio 13.7, Glucose 1294 H*, Lactic Acid Cancelled, Calcium 9.5, Magnesium 3.7 H, Total Bilirubin 0.60 08/24/23 09:35: Lactic Acid 4.7 H* 08/24/23 10:17: APTT 26.5, Triglycerides 442 H, Cholesterol 304 H, LDL Cholesterol TNP, VLDL Cholesterol TNP, HDL Cholesterol 36 L 08/24/23 11:20: Urine Color Yellow, Urine Clarity Clear, Urine pH 5.0, Ur Specific [place] 1.015, Urine Protein 30 H, Urine Glucose (UA) 1000 H, Urine Ketones 150 A*, Urine Occult Blood 250 H, Urine Nitrite Negative, Urine Bilirubin Negative, Urine Urobilinogen Normal, Ur Leukocyte Esterase Negative, Urine RBC 0-5 SEEN, Urine WBC 0 SEEN 08/24/23 12:20: Sodium 135 L, Potassium 4.3, Chloride 103, Carbon Dioxide 7.0 L*, Anion Gap 25 H, BUN 48 H, Creatinine 2.70 H, Est GFR (MDRD) Af Amer 31 L, Est GFR (MDRD) Non-Af 26 L, BUN/Creatinine Ratio 17.8, Glucose 878 H*, Hemoglobin A1c 12.4 H, Calcium 9.0 08/24/23 13:30: Glucose 705 H* 08/24/23 15:00: Lactic Acid 2.7 H* 08/24/23 17:20: APTT 86.6 H, Sodium 141, Potassium 3.8, Chloride 108 H, Carbon Dioxide 16.0 L, Anion Gap 17 H, BUN 44 H, Creatinine 2.22 H, Est GFR (MDRD) Af Amer 39 L, Est GFR (MDRD) Non-Af 33 L, BUN/Creatinine Ratio 19.8, Glucose 444 H, Calcium 9.1 08/24/23 21:14: Sodium 142, Potassium 4.1, Chloride 109 H, Carbon Dioxide 19.0 L, Anion Gap 14, BUN 41 H, Creatinine 1.99 H, Est GFR (MDRD) Af Amer 45 L, Est GFR (MDRD) Non-Af 37 L, BUN/Creatinine Ratio 20.6 H, Glucose 372 H, Calcium 8.9 08/24/23 23:57: APTT 73.1 H 08/25/23 01:00: Sodium 141, Potassium 3.8, Chloride 109 H, Carbon Dioxide 19.0 L, Anion Gap 13, BUN 39 H, Creatinine 1.89 H, Est GFR (MDRD) Af Amer 47 L, Est GFR (MDRD) Non-Af 39 L, BUN/Creatinine Ratio 20.6 H, Glucose 308 H, Calcium 9.0 08/25/23 05:38: WBC 15.3 H, RBC 5.02, Hgb 15.3, Hct 43.6, MCV 86.9 D, MCH 30.5, MCHC 35.1 D, Plt Count 214, MPV 9.8, APTT 55.0 H, Sodium 144, Potassium 3.2 L, Chloride 110 H, Carbon Dioxide 20.0 L, Anion Gap 14, BUN 38 H, Creatinine 1.66 H, Est GFR (MDRD) Af Amer 55 L, Est GFR (MDRD) Non-Af 46 L, BUN/Creatinine Ratio 22.9 H, Glucose 242 H, Calcium 8.9 Rhythm: NSR Radiography Diagnostic Testing: Radiology Impression Chest X-Ray 08/24/23 09:14 IMPRESSION: Normal x-ray examination of the chest. Electronically Signed: Gee Arceo MD at 9:26 EDT , Abdomen/Pelvis CT 08/24/23 11:28 IMPRESSION: Findings in keeping with acute pancreatitis with pancreatic enlargement and diffuse increased markings in the peripancreatic region as well as the anterior pararenal spaces bilaterally. Electronically Signed: Gee Arceo MD at 11:44 EDT , Documented by User: Dr. Carlota Valdez MD 08/25/23 15:25 Assessment & Plan Assessment/Plan (1) Atrial fibrillation with RVR: (2) Non-sustained ventricular tachycardia: PLAN: Plan Patient did convert to sinus rhythm. Feel that it is okay to stop his IV Cardizem and just continue with metoprolol upon discharge. Feel that he can also be started on Eliquis and his heparin be discontinued. Echocardiogram is pending. If this is normal feel that patient can be followed up with us on an outpatient basis. Will sign off for now. If any additional input is needed please do not hesitate to call. Review of the echocardiogram showed EF in the range of 40-45% With apical hypokinesia. From cardiac standpoint we will continue to monitor and follow-up with medical therapy With the plan of follow-up as an outpatient for continuation of cardiac care. HPI Consult Data Date of Consult: 08/25/23 [facility] Medical History (Updated 08/24/23 @ 21:[address] Laureano Rahman, DO) High cholesterol Home Medications NK 08/24/23 [History Last Taken Unknown] Allergy/AdvReac Type Severity Reaction Status Date / Time No Known Allergies Allergy Verified 08/24/23 08:11 Social History Smoking Status: Current every day smoker tobacco type: smokeless tobacco Lab / Micro Data 08/25/23 05:38 08/25/23 10:00
[2023-08-25 08:19] LABS: Bedside Glucose 221 mg/dL (74-106)
[2023-08-25] MEDS: Metoprolol Tartrate 25 MG Tablet PO ×2 (08:52→21:56)
[2023-08-25 09:16] LABS: Bedside Glucose 235 mg/dL (74-106)
[2023-08-25 10:21] LABS: Bedside Glucose 178 mg/dL (74-106)
[2023-08-25 10:34] LABS: Anion Gap 9 (5-15); BUN 35 mg/dL (7-18); Calcium,Total 8.6 mg/dL (8.5-10.1); Chloride 112 mmol/L (98-107); Creatinine, Serum 1.67 mg/dL (0.70-1.30); EST Glomerular Filtration Rate 45 mL/min (>60); Est Glom Filt Rate - Afr Amer 55 mL/min (>60); Glucose 175 mg/dL (74-106); Potassium 3.2 mmol/L (3.5-5.1); Sodium Level 143 mmol/L (136-145)
--- NOTE | 2023-08-25 11:12 | CASEMGMT ---
GALLITO MARK Assessment Face to Face with patient for initial transition planning/care coordination assessment. RN CM introduced self and role at [facility], pt voices understanding. Pt is A&Ox4 and is resting comfortably in bed and is calm. Pt Friend (Jack) and friend's at bedside. Care providers, pharmacy, and demographics verified. Admitting dx: DKA VS HHS, Acute Pancreatitis LACE Strata: 1 PCP: Shira Specialists: Denies Preferred Pharmacy: [facility] Insurance: None. Pt is self pay. ESME Cheung states that she will follow up with the pt about this. Pt is aware. Prescription Benefit: None at this time. Pt is not currently on any home meds LNOK: Melanie Santos (Daughter), Jack Conti (Friend) Living Arrangements: Pt lives alone in a 2 story home with a BM with HR throughout with 10-12 steps to enter with HR. Pt denies issues. ADLs/IADLs: Ind Transportation: Self, Friend DME: Denies all DME. Pt states that he does not have a BGM. Pt does not have insurance for this GALLITO CM to provide Rx for at this time. Pt educated that the pt has the option to buy a BGM and supplies at [facility] for around 20$. Pt states that he is OK with this and will buy one after DC from [facility]. HHC/SNF: Denies history or needs Pt?s goal: Home with new BGM Plan: Therapy eval pending. Pt denies HHC or OP therapy now. Pt states that he feels safe discharging home alone once medically ready. Pt states that his friend will drive him home from the hospital. ESME to follow for pt insurance. JAS to follow in regard to safe DC home from [facility]. Capri Monte RN, CM
[2023-08-25 11:29] LABS: Bedside Glucose 143 mg/dL (74-106)
--- NOTE | 2023-08-25 11:40 | CASEMGMT ---
Social Work SW met with pt and introduced self and role of SW. Pt does not have medical insurance. SW spoke with pt regarding self pay status. Pt spoke with Yaz at [employer] and Yaz will assist pt in applying for Medicaid. Pt does have some limited finances and could afford prescriptions at discharge if they are reasonable. SW provided pt with community resources including prescription assistance programs, [employer] and [employer] and [employer] card. RNCM updated. Pt with no further questions at this time. RAHEEM Sutton
[2023-08-25] MEDS: APIXABAN 5 MG TABLET PO ×2 (12:25→21:56)
[2023-08-25] MEDS: Insulin NPH Human 100 UNITS/ML PEN 15 UNITS SC (12:25)
[2023-08-25 12:46] LABS: Bedside Glucose 106 mg/dL (74-106)
--- NOTE | 2023-08-25 13:21 | PN.HOSP_ITS ---
Reason for Visit Reason for Visit: Diagnoses Elevated white blood cell count, unspecified (08/24/23) Type 2 diabetes mellitus with ketoacidosis without coma (08/24/23) Other ventricular tachycardia (08/24/23) Unspecified atrial fibrillation (08/24/23) Acute pancreatitis without necrosis or infection, unspecified (08/24/23) Acute kidney failure, unspecified (08/24/23) Subjective Subjective No acute events overnight. Patient seen at bedside this morning, sister and friend present. Patient was laying fairly comfortably in bed, conversing norm ally, in no acute distress. He did again appear mild to moderately fatigued, similar to yesterday. Patient's main concern this morning is that his mouth continues to feel very dry, similar to yesterday. He tolerated the insulin drip overnight without issues. He is looking forward to trying a diet today when allowed. Otherwise denies any acute concerns. Objective Data Objective Data Vital Signs: Vital Signs Temp Pulse Resp BP Pulse Ox O2 Del Method O2 Flow Rate 97.7 F L 75 20 H 114/72 95 Room Air 2 08/25/23 12:00 08/25/23 12:00 08/25/23 12:00 08/25/23 12:00 08/25/23 12:00 08/25/23 12:00 08/24/23 17:00 Oxygen Flow Rate (L/min) 2 Oxygen Delivery Method Room Air Weight: 100.3 kg Body Mass Index (BMI) 26.1 Intake & Output: Intake and Output for Last 24 Hours 08/23/23 08/24/23 08/25/23 23:59 23:59 23:59 Intake Total 3623.60 / 3641.10 3460.53 / 3460.53 Output Total 1999 875 / 875 Balance 1623.60 / 1641.10 2585.53 / 2585.53 Lab / Micro Data 08/25/23 05:38 08/25/23 10:00 Labs: Laboratory Results - last 24 hr 08/24/23 11:20: U Random Total Protein 64.2 H, Ur Random Sodium 18, Urine Creatinine 23.40, Protein/Creatinin Ratio 2744 H, Urine Opiates Screen NEGATIVE, Urine Methadone Screen NEGATIVE, Ur Barbiturates Screen NEGATIVE, Ur Phencyclidine Scrn NEGATIVE, Ur Amphetamines Screen NEGATIVE, MDMA (Ecstasy) Screen NEGATIVE, U Benzodiazepines Scrn NEGATIVE, Urine Cocaine Screen NEGATIVE, U Cannabinoids Screen NEGATIVE, Ur Drug Screen Comment 08/24/23 12:20: Hemoglobin A1c 12.4 H 08/24/23 13:21: POC Glucose > 500 H* 08/24/23 13:30: Glucose 705 H* 08/24/23 14:45: POC Glucose > 500 H* 08/24/23 15:00: Lactic Acid 2.7 H*, Ethyl Alcohol < 3.0 08/24/23 16:06: POC Glucose 428 H 08/24/23 17:07: POC Glucose 415 H 08/24/23 17:20: APTT 86.6 H, Sodium 141, Potassium 3.8, Chloride 108 H, Carbon Dioxide 16.0 L, Anion Gap 17 H, BUN 44 H, Creatinine 2.22 H, Estim Creat Clear Calc 46.27, Est GFR (MDRD) Af Amer 39 L, Est GFR (MDRD) Non-Af 33 L, BUN/Creatinine Ratio 19.8, Glucose 444 H, Calcium 9.1 08/24/23 18:12: POC Glucose 385 H 08/24/23 19:59: POC Glucose 348 H 08/24/23 21:14: Sodium 142, Potassium 4.1, Chloride 109 H, Carbon Dioxide 19.0 L , Anion Gap 14, BUN 41 H, Creatinine 1.99 H, Estim Creat Clear Calc 51.61, Est GFR (MDRD) Af Amer 45 L, Est GFR (MDRD) Non-Af 37 L, BUN/Creatinine Ratio 20.6 H , Glucose 372 H, Calcium 8.9 08/24/23 22:08: POC Glucose 332 H 08/24/23 23:55: POC Glucose 352 H 08/24/23 23:57: APTT 73.1 H 08/25/23 01:00: Sodium 141, Potassium 3.8, Chloride 109 H, Carbon Dioxide 19.0 L , Anion Gap 13, BUN 39 H, Creatinine 1.89 H, Estim Creat Clear Calc 54.35, Est GFR (MDRD) Af Amer 47 L, Est GFR (MDRD) Non-Af 39 L, BUN/Creatinine Ratio 20.6 H , Glucose 308 H, Calcium 9.0 08/25/23 01:03: POC Glucose 304 H 08/25/23 01:58: POC Glucose 306 H 08/25/23 02:58: POC Glucose 288 H 08/25/23 03:02: Acetone Level SMALL H 08/25/23 04:10: POC Glucose 255 H 08/25/23 05:03: POC Glucose 242 H 08/25/23 05:38: WBC 15.3 H, RBC 5.02, Hgb 15.3, Hct 43.6, MCV 86.9 D, MCH 30.5, MCHC 35.1 D, RDW Std Deviation 42.7, RDW Coeff of Sam 13.6, Plt Count 214, MPV 9.8, APTT 55.0 H, Sodium 144, Potassium 3.2 L, Chloride 110 H, Carbon Dioxide 20.0 L, Anion Gap 14, BUN 38 H, Creatinine 1.66 H, Estim Creat Clear Calc 61.88, Est GFR (MDRD) Af Amer 55 L, Est GFR (MDRD) Non-Af 46 L, BUN/Creatinine Ratio 22.9 H, Glucose 242 H, Calcium 8.9 08/25/23 05:58: POC Glucose 217 H 08/25/23 06:51: POC Glucose 258 H 08/25/23 06:57: Acetone Level LARGE H 08/25/23 08:01: POC Glucose 221 H 08/25/23 08:55: POC Glucose 235 H 08/25/23 10:00: Sodium 143, Potassium 3.2 L, Chloride 112 H, Carbon Dioxide 22.0, Anion Gap 9, BUN 35 H, Creatinine 1.67 H, Estim Creat Clear Calc 61.50, Est GFR (MDRD) Af Amer 55 L, Est GFR (MDRD) Non-Af 45 L, BUN/Creatinine Ratio 21.0 H, Glucose 175 H, Calcium 8.6, POC Glucose 178 H 08/25/23 11:11: POC Glucose 143 H 08/25/23 12:23: POC Glucose 106 Physical Exam Const alert, oriented x3 and no apparent distress Constitutional Narrative: Pleasant middle-age male, mildly fatigued appearing but mentation now normal, otherwise laying comfortably in bed, conversing normally, no acute distress. General Appearance: cooperative and comfortable HEENT normocephalic, head/scalp atraumatic, hearing grossly normal bilaterally and nasal mucous membranes and turbinates normal HEENT Narrative: Dry mucous membranes. Eyes PERRL, EOMs intact bilaterally and conjunctivae normal Neck full ROM Chest inspection of chest normal Resp normal respiratory effort, normal air movement, no use of accessory muscles and clear to auscultation bilaterally Cardio regular rate, regular rhythm, no murmurs and peripheral pulses 2+ throughout GI normal to inspection, nondistended, normoactive bowel sounds, soft to palpation, non-tender and non-distended Back/Spine normal ROM Extremity normal to inspection, full ROM and no pedal edema Skin no rashes or lesions noted Neuro moves all extremities and no focal motor deficits Speech: speech normal Psych mental status grossly normal Assessment & Plan Assessment/Plan (1) Non-sustained ventricular tachycardia: (2) Atrial fibrillation with RVR: (3) Leukocytosis: (4) DKA (diabetic ketoacidosis): (5) LONI (acute kidney injury): (6) Acute pancreatitis: PLAN: Plan Patient is a 57-year-old male who presented to [facility] ED on 08/24/2023 with 2 to 3-month history of worsening nausea and vomiting with weight loss. 1. DKA, new onset diabetes mellitus Labs on admit consistent with DKA as noted in HPI. A1c 12.4%. No previous labs for comparison. Unclear if patient has new onset type 2 diabetes mellitus and also hypertriglyceridemia that were both contributing to him developing acute pancreatitis, or if he could have some degree of a functional type 1 diabetes secondary to ongoing acute pancreatitis. Patient was overweight with reported fairly poor eating habits but has no significant family history of type 2 diabetes that he notes and he denied classic diabetes symptoms of polyuria and polydipsia over the past 2 to 3 months. ? Anion gap normalized on insulin drip on morning of 08/24. Transitioned off insulin drip at lunchtime. Gave dose of 15 units of NPH, will start Lantus 30 units at night this evening. Will start Humalog 10 units with meals plus sliding scale as needed. Will obtain BMPs at 4 PM and 8 PM to ensure patient's anion gap has not reopened. Encouraged p.o. intake, no need for further IV fluids. hospital educator and sand molder consulted. Told patient that he very likely will need to go home on both basal and prandial insulin. Would recommend the patient establish with endocrinology in the office shortly after discharge. 2. Acute pancreatitis Lipase [address] abdomen pelvis with findings consistent with acute pancreatitis. Unusual presentation as patient reports significant nausea with vomiting and weight loss over 2 to 3 months but denies any abdominal pain over that timeframe. Etiology unclear at this time. Minimal alcohol use history. LFTs normal with no evidence of bile duct or gallbladder issues. Triglycerides are elevated to the 400s, so it seems that hypertriglyceridemia may be the most likely cause of pancreatitis at this point. ? Transitioned to p.o. diet on 08/24, IV fluids discontinued as noted above. Continue atorvastatin 80 mg daily. GI consulted for further recommendations. 3. New onset A-fib with RVR with short episodes of ventricular tachycardia, new onset heart failure Noted in the ED to have A-fib with RVR with heart rate in the 160s. Also noted to have short runs of V. tach at that time. Discussed with on-call cardiology and was started on Cardizem drip and heparin drip at that time. Had good improvement in heart rate to 100s to 110s on Cardizem drip. Patient denies any history of palpitations. Echo on 08/24 showed EF 40 to 45% with apical hypokinesia, no significant valvular disease. ? Cardiology following. Patient notably converted to normal sinus rhythm sometime on 08/23. Per cardiology recs, transitioned from heparin drip to Eliquis on 08/24. Started p.o. Lopressor 25 mg twice daily on 08/24 and Cardizem drip discontinued. Appreciate further cardiology recommendations regarding echo findings as noted above. 4. LONI, improving Creatinine 3.57, BUN 49 on admit. No previous labs for comparison. Prerenal LONI secondary to severe volume depletion seems most likely. CT abdomen pelvis showed normal bladder, prostatic calcifications but no BPH, normal kidneys. UA showed 30 protein, random total protein in urine elevated at 64, protein/creatinine ratio very elevated at 2744. FeNa 2.4%, more consistent with intrinsic renal disease. ? Creatinine continues to improve for admission, most recent creatinine 1.67 on 08/24. Continue to monitor BMP daily and urine output. 5. Hyperlipidemia and hypertriglyceridemia ? Lipid profile showed triglycerides 442, total cholesterol 304, LDL not calculable, HDL 36. Started on atorvastatin 80 mg daily on 08/23. Recommend checking repeat lipid profile in 8 to 12 weeks. 6. Leukocytosis ? WBC count 18.5 on admit. Suspect primarily secondary to acute stress state fr om DKA and pancreatitis along with dehydration. Improved to WBC count of 15 on hospital day 2. Low concern for active infection, no need for antibiotics at this time. 7. Tobacco abuse ? Uses dip tobacco regularly. Encouraged cessation. Nicotine replacement therapy available as needed. DVT prophylaxis: Eliquis CODE STATUS: Full code, verified Expected disposition: Home, TBD Total clinical time spent by myself addressing the patient's medical issues, reviewing all the data, and collaborating with patient's care team: 35 minutes. Charges/Coding Visit Charges Inpatient E&M: 38356 Subs Hosp L2
[2023-08-25 13:44] LABS: Bedside Glucose 143 mg/dL (74-106)
[2023-08-25 15:33] LABS: Bedside Glucose 185 mg/dL (74-106)
[2023-08-25 16:22] LABS: Anion Gap 12 (5-15); BUN 38 mg/dL (7-18); Calcium,Total 8.5 mg/dL (8.5-10.1); Chloride 108 mmol/L (98-107); Creatinine, Serum 1.52 mg/dL (0.70-1.30); EST Glomerular Filtration Rate 50 mL/min (>60); Est Glom Filt Rate - Afr Amer 61 mL/min (>60); Estimated Creatinine Clearance 67.57 ml/min; Glucose 254 mg/dL (74-106); Potassium 3.7 mmol/L (3.5-5.1); Sodium Level 141 mmol/L (136-145)
[2023-08-25] MEDS: Glucerna Shake 120 ML LIQUID PO ×2 (17:35→22:19)
[2023-08-25] MEDS: Insulin Lispro 100 UNIT/ML INSULN.PEN SC ×2 (17:39→22:20)
[2023-08-25 17:54] LABS: Bedside Glucose 279 mg/dL (74-106)
[2023-08-25] MEDS: Atorvastatin Calcium 80 MG Tablet PO (21:56)
[2023-08-25] MEDS: Insulin Glargine-YFGN 100 UNIT/ML Pen 30 UNIT SC (22:19)
[2023-08-25 22:39] LABS: Anion Gap 16 (5-15); BUN 36 mg/dL (7-18); BUN/Creat Ratio 24.2 RATIO (10-20); Calcium,Total 8.6 mg/dL (8.5-10.1); Chloride 108 mmol/L (98-107); Creatinine, Serum 1.49 mg/dL (0.70-1.30); EST Glomerular Filtration Rate 52 mL/min (>60); Est Glom Filt Rate - Afr Amer 62 mL/min (>60); Estimated Creatinine Clearance 68.93 ml/min; Glucose 313 mg/dL (74-106); Potassium 3.7 mmol/L (3.5-5.1); Sodium Level 140 mmol/L (136-145)
[2023-08-25 22:45] LABS: Bedside Glucose 296 mg/dL (74-106)
[2023-08-26 04:20] VITALS: BP 117/64; PULSE 78; RESP 17; TEMP 36.6; O2SAT 97
[2023-08-26] MEDS: 0.9% Saline Lock 10 ML Syringe IV (04:22)
[2023-08-26 04:24] VITALS: BMI 26.4
[2023-08-26 04:35] LABS: Hematocrit 41.2 % (40-54); Hemoglobin 14.3 g/dL (13.0-16.5); Mean Corp Hgb Conc 34.7 g/dL (32-36); Mean Corpuscular Hgb 30.9 pg (27.0-32.0); Platelet Count 184 K/mm3 (150-450); RBC Distribution Width SD 45.3 fl (35.1-43.9); Red Blood Count 4.63 M/mm3 (4.6-6.2); White Blood Count 11.5 K/mm3 (4.4-11.0)
[2023-08-26 04:49] LABS: Anion Gap 13 (5-15); BUN 33 mg/dL (7-18); BUN/Creat Ratio 23.4 RATIO (10-20); Calcium,Total 8.7 mg/dL (8.5-10.1); Chloride 109 mmol/L (98-107); Creatinine, Serum 1.41 mg/dL (0.70-1.30); EST Glomerular Filtration Rate 55 mL/min (>60); Est Glom Filt Rate - Afr Amer 67 mL/min (>60); Estimated Creatinine Clearance 72.85 ml/min; Glucose 275 mg/dL (74-106); Potassium 3.5 mmol/L (3.5-5.1); Sodium Level 142 mmol/L (136-145)
[2023-08-26] MEDS: Insulin Lispro 100 UNIT/ML INSULN.PEN 10 UNIT SC ×2 (08:05→12:07)
[2023-08-26] MEDS: Insulin Lispro 100 UNIT/ML INSULN.PEN SC ×2 (08:06→12:08)
[2023-08-26 08:24] LABS: Bedside Glucose 256 mg/dL (74-106)
[2023-08-26 10:20] VITALS: BP 101/84; PULSE 91; RESP 14; TEMP 36.9; O2SAT 98
[2023-08-26 10:33] VITALS: BP 101/84; PULSE 88
[2023-08-26] MEDS: Metoprolol Tartrate 25 MG Tablet PO (10:33)
[2023-08-26] MEDS: APIXABAN 5 MG TABLET PO (10:34)
[2023-08-26 12:29] LABS: Bedside Glucose 379 mg/dL (74-106)
--- NOTE | 2023-08-26 12:50 | PCM.DC ---
Discharge Instructions Diet Discharge Diet: 1800 Calorie Control Diet Activity Discharge Activity: Return to Normal Activity Weight Bearing Status: Full weight bearing Follow Up Care Test Results: Test results from this visit will be discussed in further detail at your follow-up appointment, if applicable. Discharge Plan Admission Admit Date/Time: 08/24/23 10:04 Primary Reason for Your Visit: Type 2 diabetes, cardiomyopathy, paroxysmal A-fib Attending Provider: Shahriar Wallace Primary Care Provider: Edwardo Silva Consulting Providers: Carlota Valdez; Laureano Rahman Instructions Additional Instructions / Restrictions: Check your blood sugars before meals and write them down, call your physician if blood sugars are consistently above 350 Obtain a glucose meter at [facility] along with strips, you will also need a lancet device with lancets Discharge Orders/Prescriptions Prescriptions: New atorvastatin 80 mg Tablet 80 mg PO QHS Qty: 30 0RF insulin lispro [Humalog KwikPen Insulin] 100 unit/mL Insulin Pen 10 unit subcut TIDAC Qty: 5 0RF metoprolol tartrate 25 mg Tablet 25 mg PO BID Qty: 60 0RF Eliquis 5 mg Tablet 5 mg PO BID Qty: 60 0RF insulin glargine-yfgn 100 unit/mL (3 mL) Insulin Pen 25 unit subcut BID Qty: 5 0RF Rx Instructions: Take with breakfast and dinner daily (DME) pen needle, diabetic 31 gauge x 1/3 needle See Rx Instructions .Route Qty: 100 0RF Rx Instructions: As directed Referrals / Follow Up: Carlota Valdez MD [Med Staff - Active Staff] - 09/21/23 9:30 am (Appointment with Amanda OKEEFE) Edwardo Silva MD [Primary Care Provider] - Pushpa Muñoz [Non-Staff] - Within 2 Weeks (Bring all your medications with you, bring a chart of your blood sugars also, you will need to call and make an appointment for yourself, tell them that you were in the hospital and this is to establish a physician and for hospital follow-up) Disposition Disposition (needs filled in before D/C Order can be placed): Home, Self Care
--- NOTE | 2023-08-26 13:06 | DS.PCM_ITS ---
Providers Date of Admission: 08/24/23 Date of Discharge: 08/26/23 Primary Care Physician: Dr. Vineet Silva MD Consultations 08/24/23 17:00 Consult: Cardiology Routine Consulting Provider: Carlota Valdez Reason for Consult: new onset afib with rvr with runs of Vtach EMERGENT Consult: No Notified: Yes Date Notified: 08/24/23 Time Notified: 17:01 Method of Notification: Verbal 08/24/23 21:59 Consult: Gastroenterology Routine Consulting Provider: [facility] Reason for Consult: acute pancreatitis EMERGENT Consult: No Notified: Yes Date Notified: 08/25/23 Time Notified: 08:10 Method of Notification: Text Reason For Visit: DKA VS HHS, ACUTE PANCREATITIS Diagnosis Discharge Diagnosis (1) Atrial fibrillation with RVR: Status: Acute Code(s): I48.91 - Unspecified atrial fibrillation (2) Non-sustained ventricular tachycardia: Status: Acute Code(s): I47.29 - Other ventricular tachycardia Plan 1. Acute DKA #2 uncontrolled type 2 diabetes new onset #3 atrial fibrillation with RVR #4 acute pancreatitis #5 acute kidney injury #6 hyperlipidemia Congestive heart failure was ruled out Medications at Discharge Home Medications apixaban 5 mg tablet (Eliquis) 5 mg PO BID #60 tabs 08/26/23 atorvastatin 80 mg tablet 80 mg PO QHS #30 tabs 08/26/23 insulin glargine-yfgn 100 unit/mL (3 mL) subcutaneous pen 25 unit (0.25 mL) subcut BID #5 mL 08/26/23 insulin lispro 100 unit/mL subcutaneous pen (Humalog KwikPen (U-100) Insulin) 10 unit (0.1 mL) subcut TIDAC #5 mL 08/26/23 metoprolol tartrate 25 mg tablet 25 mg PO BID #60 tabs 08/26/23 pen needle, diabetic 31 gauge x 1/3 #100 ea 08/26/23 Hospital Course Operations None Procedures 2-D Echocardiogram Summary of Care Provided Minutes Spent on Discharge: 32 Hospital Course: This 57-year-old white male was seen in the emergency room at [facility] [place] with complaint of vomiting and generalized weakness, patient also complained of a weight loss of approximately 50 pounds in the last month. Patient was noted to be hypotensive in the emergency room, 2 IVs were established and the patient was placed on quality assurance monitor, EKG was obtained which showed A-fib with RVR with a rate of 167, patient also had a brief run of wide-complex tachycardia. Cardiology was contacted who recommended to Cardizem and heparin drip, labs were ordered, patient was noted to have an elevated white blood cell count of 18.5, sodium was 124, and blood glucose was over 1200. Anion gap was 31. Patient's lipase was over 2000, his creatinine was noted to be elevated at 3.57 and his bicarb was 7. Patient had elevated lactic acid at 4.7. Patient was admitted to ICU with a diagnosis of DKA, he was placed on an insulin drip, he was seen in consultation by cardiology, patient converted to normal sinus rhythm and his IV Cardizem was stopped. Echocardiogram was obtained which showed a reduced ejection fraction of 40 to 45%. Patient had a lipid profile performed which showed hyperlipidemia. Patient was seen by nutritional services, he was instructed on how to give himself insulin. On 08/26/2023, patient was seen and examined: On examination he appeared in good health and spirits. Vital signs as documented. Skin warm and dry and without overt rashes. Neck without JVD, neck was supple, trachea midline, thyroid was normal. Lungs clear bilaterally, normal air movement was noted. Heart exam notable for regular rhythm, normal sounds and absence of murmurs, rubs or gallops. Abdomen unremarkable and without evidence of organomegaly, masses, or abdominal aortic enlargement. Bowel sounds are present, abdomen is not distended. Extremities nonedematous, no cyanosis was noted, no clubbing was noted. Neuro: Cranial nerves II through XII are grossly intact, no focal motor deficits were noted, sensation to light touch and pinprick intact, motor exam 5/5 throughout. Psych: Patient is alert and oriented x3, he does not appear anxious or depressed, he does not appear agitated. Patient appears stable for discharge home on 08/26/2023, he was to follow-up with cardiology as an outpatient regarding further testing and was referred to [facility] for follow-up. Medical Records Data Medical Nutrition Assessment Dietitian: Malnutrition Criteria Met Start: 08/25/23 15:16 Freq: Status: Active Protocol: Document 08/25/23 15:16 LO (Rec: 08/25/23 15:16 [id number]) Nutrition Malnutrition Evidence of Malnutrition Exists Yes Malnutrition (severe): Chronic Evidenced By Suboptimal Energy Intake ( Severe),Weight Loss (Severe) Clinical Problem Chronic Disease or Condition Related Malnutrition Etiology severe related to nausea, vomiting and newly diagnosed diabetes Signs/Symptoms as evidenced by PO intakes <75 % of estimated need for 2-3 months and 58.9lbs (21%) in 2 months Status Active Problem Recommendation Dietitian Recommendations/Changes RD will adjust diet to 2200CCD diet to manage blood sugars. RD will order 120mL Glucerna 4x daily with medpass to provide supplemental energy. Weight / BMI Weight Weight: 101 kg Body Mass Index (BMI) 26.4 ABG / Lab / Microbiology Data 08/26/23 04:18 08/26/23 04:18 Laboratory: Laboratory Results - last 24 hr 08/25/23 13:25: POC Glucose 143 H 08/25/23 15:15: POC Glucose 185 H 08/25/23 16:00: Sodium 141, Potassium 3.7, Chloride 108 H, Carbon Dioxide 21.0, Anion Gap 12, BUN 38 H, Creatinine 1.52 H, Estim Creat Clear Calc 67.57, Est GFR (MDRD) Af Amer 61, Est GFR (MDRD) Non-Af 50 L, BUN/Creatinine Ratio 25.0 H, Glucose 254 H, Calcium 8.5 08/25/23 17:34: POC Glucose 279 H 08/25/23 22:14: Sodium 140, Potassium 3.7, Chloride 108 H, Carbon Dioxide 16.0 L , Anion Gap 16 H, BUN 36 H, Creatinine 1.49 H, Estim Creat Clear Calc 68.93, Est GFR (MDRD) Af Amer 62, Est GFR (MDRD) Non-Af 52 L, BUN/Creatinine Ratio 24.2 H, Glucose 313 H, Calcium 8.6 08/25/23 22:19: POC Glucose 296 H 08/26/23 04:18: WBC 11.5 H, RBC 4.63, Hgb 14.3, Hct 41.2, MCV 89.0, MCH 30.9, MCHC 34.7, RDW Std Deviation 45.3 H, RDW Coeff of Sam 14.0, Plt Count 184, MPV 10.0, Sodium 142, Potassium 3.5, Chloride 109 H, Carbon Dioxide 20.0 L, Anion Gap 13, BUN 33 H, Creatinine 1.41 H, Estim Creat Clear Calc 72.85, Est GFR (MDRD) Af Amer 67, Est GFR (MDRD) Non-Af 55 L, BUN/Creatinine Ratio 23.4 H, Glucose 275 H, Calcium 8.7 08/26/23 07:56: POC Glucose 256 H 08/26/23 11:59: POC Glucose 379 H Radiography Diagnostic Testing: Radiology Impression Echocardiogram 08/24/23 18:38 Interpretation Summary The estimated ejection fraction is 40-45 %. Apical Hypokinesia Ordering Physician: Carlota Valdez Referring Physician: VINEET SILVA Performed By: Carolina Zee RCS D/C Instructions Discharge Diet: 1800 Calorie Control Diet Weight Bearing Status: Full weight bearing Meaningful Use Info Meaningful Use Diagnoses (Choose all that apply): None applicable Discharge Plan Admission Admit Date/Time: 08/24/23 10:04 Primary Reason for Your Visit: Type 2 diabetes, cardiomyopathy, paroxysmal A-fib Attending Provider: Shahriar Wallace Primary Care Provider: Vineet Silva Consulting Providers: Carlota Valdez; Laureano Rahman Instructions Additional Instructions / Restrictions: Check your blood sugars before meals and write them down, call your physician if blood sugars are consistently above 350 Obtain a glucose meter at [facility] along with strips, you will also need a lancet device with lancets Discharge Orders/Prescriptions Prescriptions: New atorvastatin 80 mg Tablet 80 mg PO QHS Qty: 30 0RF insulin lispro [Humalog KwikPen Insulin] 100 unit/mL Insulin Pen 10 unit subcut TIDAC Qty: 5 0RF metoprolol tartrate 25 mg Tablet 25 mg PO BID Qty: 60 0RF Eliquis 5 mg Tablet 5 mg PO BID Qty: 60 0RF insulin glargine-yfgn 100 unit/mL (3 mL) Insulin Pen 25 unit subcut BID Qty: 5 0RF Rx Instructions: Take with breakfast and dinner daily (DME) pen needle, diabetic 31 gauge x 1/3 needle See Rx Instructions .Route Qty: 100 0RF Rx Instructions: As directed Referrals / Follow Up: Carlota Valdez MD [Med Staff - Active Staff] - 09/21/23 9:30 am (Appointment with Amanda OKEEFE) Vineet Silva MD [Primary Care Provider] - Pushpa Muñoz [Non-Staff] - Within 2 Weeks (Bring all your medications with you, bring a chart of your blood sugars also, you will need to call and make an appointment for yourself, tell them that you were in the hospital and this is to establish a physician and for hospital follow-up) Disposition Disposition (needs filled in before D/C Order can be placed): Home, Self Care Charges/Coding Visit Charges Inpatient E&M: 29435 Disch Hosp >30min
--- NOTE | 2023-08-26 13:47 | CASEMGMT ---
Pt DC order placed with new medications. [facility] called and they state that they applied the Eliquis savings card already. [facility] state that the pt medications will cost around 700$. GALLITO MARK to pt room at this time. Pt states that he cannot afford these medications and is worried about this. This RN CM educated the pt about the assistance program here. Pt educated that he can utilize this program once per year and that the hospital will cover the costs of his Rx at [place]. Pt states that he would like to use the program. Intervention filled out in [employer] and copy printed and tubed to [facility]. TC to [facility] and they state they will use the program and that the pt can steel pickler the medications in 20 minutes or so. GALLITO MARK back to pt room and updated on status. Pt thanks this GALLITO MARK and denies any other home going needs.
[2023-08-26 14:00] VITALS: BP 112/78; PULSE 89; RESP 16; TEMP 36.7; O2SAT 98
--- NOTE | 2023-08-26 15:01 | PN.CARD_ITS ---
Subjective Subjective Patient seen and examined. Overall doing well. Does not have any chest pain or shortness of breath. He would like to go home today. Objective Data Vital Signs: Vital Signs Temp Pulse Resp BP Pulse Ox O2 Del Method O2 Flow Rate 98.4 F 88 14 101/84 H 98 Room Air 2 08/26/23 10:20 08/26/23 10:33 08/26/23 10:20 08/26/23 10:33 08/26/23 10:20 08/26/23 10:20 08/24/23 17:00 Oxygen Flow Rate (L/min) 2 Oxygen Delivery Method Room Air Weight: 222 lb 10.67 oz Body Mass Index (BMI) 26.4 Intake & Output: Intake and Output for Last 24 Hours 08/24/23 08/25/23 08/26/23 23:59 23:59 23:59 Intake Total 3623.60 / 3641.10 3826.03 / 3826.03 Output Total 1999 875 / 875 Balance 1623.60 / 1641.10 2951.03 / 2951.03 Lab / Micro Data 08/26/23 04:18 08/26/23 04:18 Labs: Laboratory Results - last 24 hr 08/25/23 15:15: POC Glucose 185 H 08/25/23 16:00: Sodium 141, Potassium 3.7, Chloride 108 H, Carbon Dioxide 21.0, Anion Gap 12, BUN 38 H, Creatinine 1.52 H, Estim Creat Clear Calc 67.57, Est GFR (MDRD) Af Amer 61, Est GFR (MDRD) Non-Af 50 L, BUN/Creatinine Ratio 25.0 H, Glucose 254 H, Calcium 8.5 08/25/23 17:34: POC Glucose 279 H 08/25/23 22:14: Sodium 140, Potassium 3.7, Chloride 108 H, Carbon Dioxide 16.0 L , Anion Gap 16 H, BUN 36 H, Creatinine 1.49 H, Estim Creat Clear Calc 68.93, Est GFR (MDRD) Af Amer 62, Est GFR (MDRD) Non-Af 52 L, BUN/Creatinine Ratio 24.2 H, Glucose 313 H, Calcium 8.6 08/25/23 22:19: POC Glucose 296 H 08/26/23 04:18: WBC 11.5 H, RBC 4.63, Hgb 14.3, Hct 41.2, MCV 89.0, MCH 30.9, MCHC 34.7, RDW Std Deviation 45.3 H, RDW Coeff of Sam 14.0, Plt Count 184, MPV 10.0, Sodium 142, Potassium 3.5, Chloride 109 H, Carbon Dioxide 20.0 L, Anion Gap 13, BUN 33 H, Creatinine 1.41 H, Estim Creat Clear Calc 72.85, Est GFR (MDRD) Af Amer 67, Est GFR (MDRD) Non-Af 55 L, BUN/Creatinine Ratio 23.4 H, Glucose 275 H, Calcium 8.7 08/26/23 07:56: POC Glucose 256 H 08/26/23 11:59: POC Glucose 379 H Cardiology Labs/Tests 08/25/23 16:00: Sodium 141, Potassium 3.7, Chloride 108 H, Carbon Dioxide 21.0, Anion Gap 12, BUN 38 H, Creatinine 1.52 H, Est GFR (MDRD) Af Amer 61, Est GFR (MDRD) Non-Af 50 L, BUN/Creatinine Ratio 25.0 H, Glucose 254 H, Calcium 8.5 08/25/23 22:14: Sodium 140, Potassium 3.7, Chloride 108 H, Carbon Dioxide 16.0 L , Anion Gap 16 H, BUN 36 H, Creatinine 1.49 H, Est GFR (MDRD) Af Amer 62, Est GFR (MDRD) Non-Af 52 L, BUN/Creatinine Ratio 24.2 H, Glucose 313 H, Calcium 8.6 08/26/23 04:18: WBC 11.5 H, RBC 4.63, Hgb 14.3, Hct 41.2, MCV 89.0, MCH 30.9, MCHC 34.7, Plt Count 184, MPV 10.0, Sodium 142, Potassium 3.5, Chloride 109 H, Carbon Dioxide 20.0 L, Anion Gap 13, BUN 33 H, Creatinine 1.41 H, Est GFR (MDRD) Af Amer 67, Est GFR (MDRD) Non-Af 55 L, BUN/Creatinine Ratio 23.4 H, Glucose 275 H, Calcium 8.7 Rhythm: NSR Physical Exam Const alert, oriented x3 and no apparent distress General Appearance: cooperative and comfortable HEENT normocephalic, head/scalp atraumatic, hearing grossly normal bilaterally and nasal mucous membranes and turbinates normal Eyes PERRL, EOMs intact bilaterally and conjunctivae normal Neck full ROM Chest inspection of chest normal Resp normal respiratory effort, normal air movement, no use of accessory muscles and clear to auscultation bilaterally Cardio regular rate, regular rhythm, no murmurs and peripheral pulses 2+ throughout GI normal to inspection, nondistended, normoactive bowel sounds, soft to palpation, non-tender and non-distended Extremity normal to inspection, full ROM and no pedal edema Skin no rashes or lesions noted Neuro moves all extremities and no focal motor deficits Speech: speech normal Psych mental status grossly normal Assessment & Plan Assessment/Plan (1) Atrial fibrillation with RVR: (2) Non-sustained ventricular tachycardia: PLAN: Plan * Patient did convert to sinus rhythm. Feel that it is okay to stop his IV Cardizem and just continue with metoprolol upon discharge. Feel that he can also be started on Eliquis and his heparin be discontinued. * Echocardiogram did demonstrate an ejection fraction of 40 to 45% with apical hypokinesia. Ideally would like to have patient pursue a stress test. Feel that this could be done on an outpatient basis. Would like to maximize his medications with his decreased heart function. * Will follow-up closely in the office. Charges/Coding Visit Charges Inpatient E&M: 82530 Subs Hosp L3
== END 2023-08-26 14:37 | disposition home or self-care (01) | DRG 637 ==
LOC: ED 10:34 → ICU 10:51
PROVIDERS: Internal Medicine; Internal Medicine Interventional Cardiology; Admitting Provider Hospitalist; Emergency Provider Emergency Medicine; PCP Family Medicine; Visit Provider Internal Medicine
DX: E11.10 Type 2 diabetes mellitus with ketoacidosis without coma (principal); K85.90 Acute pancreatitis without necrosis or infection, unspecified; E43 Unspecified severe protein-calorie malnutrition; N17.9 Acute kidney failure, unspecified; I47.20 Ventricular tachycardia, unspecified; I50.9 Heart failure, unspecified; I48.91 Unspecified atrial fibrillation; E78.00 Pure hypercholesterolemia, unspecified; F17.220 Nicotine dependence, chewing tobacco, uncomplicated; E78.1 Pure hyperglyceridemia; R63.4 Abnormal weight loss; Z68.26 Body mass index [BMI] 26.0-26.9, adult
CPT/HCPCS: 71045; 74176; 80048; 80053; 80061; 80307; 80320; 81001; 82009; 82570; 82947; 82962; 83036; 83605; 83690; 83735; 84156; 84300; 84484; 85025; 85027; 85610; 85730; 86850; 86900; 86901; 93005; 93306; 94668; 97162; 97166; 97802; 99282; J7030; J7120; Q9957; A4216; C8929; G0480; J2405

== ENCOUNTER 2023-10-31 07:10 | Outpatient (CLI) | payer MEDICAID, SELFPAY ==
--- NOTE | 2023-10-31 11:06 | STRESSREP_ITS ---
Stress Test Report Exercise myocardial perfusion stress test. 57-year-old male with a history of chest pain Stress protocol: Resting EKG demonstrates normal sinus rhythm with a rate of 60 bpm resting blood pressure is 116/82 mmHg. The patient exercised according to the regular Jonny protocol for a total duration of 10 minutes attaining a maximum heart rate of 151 bpm which was 92% of maximum predicted heart rate; the maximum workload was 13.4 metabolic equivalents. At rest there were no ST or T wave changes noted to suggest ischemia and at peak exercise upsloping ST changes only were noted which did not meet the criteria for ischemia. No clinical angina was noted the test was terminated due to the target heart rate being achieved/fatigue. The peak blood pressure was 154/72 mmHg. Rate-pressure product was 19,400. Myocardial perfusion protocol. 14.3 mCi of technetium 99m sestamibi was injected at rest. The patient exercised according to regular Jonny protocol for total duration of 10 minutes and at peak exercise 44.4 mCi of technetium 99m sestamibi was injected stress images were obtained stress and rest images were reconstructed in comparing the short axis vertical long and horizontal long axis. Gated images were also obtained. Perfusion SPECT analysis: Review of the stress images demonstrate normal uptake of tracer noted in all ar eas of the myocardium. The resting images similarly demonstrate normal uptake of tracer noted in all areas of the myocardium. No areas of reversibility are noted to suggest ischemia no previous infarct was noted. Gated SPECT analysis: The gated ejection fraction is 62%. Conclusion: Normal exercise myocardial perfusion stress test at a high workload Preserved ejection fraction.
== END 2023-10-31 23:59 | disposition home or self-care (01) ==
PROVIDERS: Referring Provider Physician Assistant Medical; Visit Provider Physician Assistant Medical
DX: I48.91 Unspecified atrial fibrillation (principal); I42.9 Cardiomyopathy, unspecified; E78.00 Pure hypercholesterolemia, unspecified
CPT/HCPCS: 78452; 93017; A9500; A4216

== ENCOUNTER 2023-11-14 08:00 | Day surgery (SDC) | payer MEDICAID, SELFPAY ==
[2023-11-14] VITALS (7 sets, daily range): BP systolic 107–128; BP diastolic 67–107; PULSE 57–73; RESP 16–18; TEMP 36.2–36.6; O2SAT 94–98; BMI 28.3
--- NOTE | 2023-11-14 08:20 | HP.PCM_ITS ---
History and Physical Date of Admission: 11/14/23 Intake Vital Signs 09/20/2408:13 11/09/2412:47 Height 6 ft 5 in 6 ft 4 in Weight: 244 lb BMI 29.7 BP 125/75 H Blood Pressure Location Rt brachial Position Sitting Respiration 18 Intake Visit Reasons: COLONOSCOPY - RECTAL BLEEDING Chief Complaint: rectal bleeding Business Ethics Professor Required: No Is patient in pain?: No Allergies No Known Allergies Allergy (Verified 11/10/23 13:48) Medications ?Medication ?Instructions ?Recorded ?Confirmed ?Type pen needle, diabetic 31 gauge x #100 ea 08/26/23 Rx 1/3 apixaban 5 mg tablet (Eliquis) 5 mg PO BID #180 tabs 09/21/23 11/10/23 Rx atorvastatin 80 mg tablet 80 mg PO QHS #90 tabs 09/21/23 11/10/23 Rx metoprolol tartrate 25 mg tablet 25 mg PO BID #180 tabs 09/21/23 11/10/23 Rx insulin glargine-yfgn 100 unit/mL 27 unit subcut BID 11/10/23 History (3 mL) subcutaneous pen insulin lispro 100 unit/mL 12 unit subcut TIDAC 11/10/23 History subcutaneous pen (Humalog KwikPen (U-100) Insulin) [facility] Medical History (Updated 11/10/23 @ 05:[address] Wilber Dodd MD) Acute pancreatitis LONI (acute kidney injury) High cholesterol Non-sustained ventricular tachycardia Atrial fibrillation with RVR Leukocytosis Hyperglycemia Acute renal failure DKA (diabetic ketoacidosis) Family History (Updated 11/10/23 @ 13:47 by Jane Longo) Brother CVA (cerebral vascular accident)Uncle Diabetes Social History Smoking Status: Current every day smoker tobacco type: smokeless tobacco alcohol intake: never HPI HPI HPI: 57-year-old gentleman is being referred by the [facility] spine clinic. A written copy of my consult will be returned to them. The patient is in need of colon cancer screening. By report he has had a hospitalization at the [facility] for pancreatitis felt to be possibly related to hypertriglyceridemia. The patient did have acute kidney injury and atrial fibrillation with RVR at that time. He is being treated with Eliquis therapy in addition to other medications including insulin. The patient claims that his diabetes is newly diagnosed when he entered the hospital with DKA. He now takes insulin 5 times per day but states that he hopefully will be able to convert to oral medication. When he was in the hospital under the DKA cardiac strain and atrial fibrillation. He has been seen by Amanda Nettles since then and he has had a normal coronary stress test. With that in mind it is anticipated that he likely will be able to cease his Eliquis in the future. When he was discharged from the hospital in July he had severe constipation. But he had no immediate bleeding but it approximately 12 days ago he started with rectal bleeding with it smattering inside the toilet bowl. It is painless. Bright red blood. But he is on Eliquis therapy. He lost 40 pounds in weight prior to the diagnosis of his diabetes. He has never had a colonoscopy. ROS General General: No weight change, appetite, fatigue, colon cancer, breast cancer or wea kness HEENT HEENT: No difficulty swallowing, eye injury, eye surgery, swollen glands or hoarseness Endo Endocrine: Yes diabetes mellitus; No thyroid disease, thyroid cancer, Hair loss, heat intolerance or cold intolerance Skin Skin: No rash or changing moles Breast Breast: No left breast lump, right breast lump, nipple discharge, breast pain, abnormal mammogram, abnormal US or breast enlargement Musc Musculoskeletal: No back problems, arthritis, rheumatoid arthritis, gout or joint pain Cardio Cardiovascular: No murmur, pacemaker, heart disease, atrial fibrillation, high blood pressure, heart attack, heart stent, palpitations, shortness of breat with exertion or chest pain Psych Psychiatric: No depression, anxiety or hearing voices Resp Respiratory: No shortness of breath, No sleep apnea, No cough, No COPD, No asthma, No emphysema and No wheezing Gastro Gastrointestinal: No abdominal pain, No nausea or vomiting, No diarrhea, No constipation, Yes blood in stool, No acid reflux, Yes hemorrhoids, No ulcers, No gallbladder problem and No black,tarry stools Joe Hematologic: Yes blood thinners, No blood disorders, No bleeding, No anemia and No blood clots Neuro Neurologic: No system reviewed and no additional complaints, except as documented, No as per HPI, No abnormal gait, No abnormal hearing, No abnormal m ovements, No abnormal speech, No behavioral changes, No burning sensations, No confusion, No convulsions, No disequilibrium, No dizziness, No localized weakness, No frequent falls, No headache(s), No lack of coordination, No loss of vision, No memory loss, No numbness, No other visual disturbances, No radicular pain, No restless legs, No sensory deficit, No syncope, No tingling, No tremor(s), No weakness and No other Exam Const General: cooperative, healthy appearing, comfortable and no acute distress Orientation: alert, awake and oriented x3 HENMT Head: normal to inspection Eyes General: appearance normal, both eyes and all related structures Neck Neck: normal visual inspection Chest Chest palpation & inspection: normal inspection of the chest Resp Effort & Inspection: normal respiratory effort Auscultation: clear to auscultation bilaterally Cardio Rate: regular rate Rhythm: regular rhythm GI Other: Soft, nontender, no hepatosplenomegaly, normal bowel sounds Musc Cervical Spine: normal cervical lordosis Skin Other: Superficial left pretibial abrasion. Neuro General: patient alert, patient awake and patient oriented x3 Extrem General: no calf tenderness Psych Appearance: grossly normal Assessment and Plan Assessment and Plan (1) Screening for intestinal cancer: Status: Acute Plan: 57-year-old gentleman with onset of rectal bleeding which has ceased the last couple days. He had new onset of diabetes ketoacidosis and atrial fibrillation. The atrial fibrillation is now felt to be secondary to the DKA. He currently is in a regular rhythm. By his instructions he likely will be able to cease the Eliquis in the near future. He has never had a colonoscopy I propose for him a colonoscopy with possible biopsy or polypectomy as indic ated. We will hold his Eliquis 3 days preprocedure. He is aware of the technique, benefit, risk and alternatives. He had an opportunity ask and have questions answered. I appreciate the opportunity of assisting with the surgical care. Copy: [facility] Wilber Dodd M.D., F.A.C.S I have examined the patient and the H&P has been reviewed. There are no clinical changes since date of exam. Wilber Dodd M.D., F.A.C.S.
--- NOTE | 2023-11-14 08:42 | PRE.ANES_ITS ---
ASA Classification* ASA Classification ASA Classification: 3 Assessment & Plan Anesthesia* Anesthesia Assessment Anesthesia Assessment: Discussed sedation and/or anesthesia options, risks, benefits, and alternatives with patient/parents/legal guardian/POA. Questions invited. The patient/parents/legal guardian/POA seems to understand and agrees to proceed with anesthesia plan. Reviewed the physical assessment, medical history, allergy history and patient home medications list prior to surgery/procedure/anesthetic and documented any changes. Performed airway and anesthesia risk assessments. Anesthesia Type Anesthesia Type: MAC Pre-Assessment Diagnosis/Proposed Procedure Planned Operative Procedure(s): CSCOPE Anesthesia History Anesthesia History - relay checker: Anesthesia History - relay checker Hx Hospitalization Yes: 07/2023 DIABETES,ACUTE 11/10/23 15:07 PANCREATITIS Any Problems With Anesthesia No 11/10/23 15:07 Cholinesterase deficiency No 11/10/23 15:07 You/Your Family Experience No 11/10/23 15:07 fever (hyperthermia) with Relationship Recent Exposure to Contagious Disease Does patient have nerve No 11/10/23 15:07 stimulator Patient instructed to have device shut off --Does patient have Pacemaker or ICD? When Was Last Pacemaker Check QUESTION #4 FULL TEXT: You/Your Family Experience fever (hyperthermia) with Anesthesia Last Oral Intake Last Oral intake: Last Oral Intake NPO since Meds taken in AM with sips of water? Meds patient instructed to take am of surgery PONV PONV - relay checker: PONV - relay checker Female No 11/10/23 15:07 HX of Motion Sickness No 11/10/23 15:07 HX of N/V After Surgery No 11/10/23 15:07 Non-Smoker No 11/10/23 15:07 Duration of Surgery greater No 11/10/23 15:07 than 60 minutes Number of Risk Factors PONV Score Height & Weight Height & Weight: Anesthesia: Height & Weight Height 6 ft 4 in 11/10/23 13:47 Respiratory Assessment Respiratory Assessment - relay checker: Respiratory Tract Infection Hx - relay checker Hx Respiratory Tract Infection No 11/10/23 15:07 STOP Sleep Apnea STOP Sleep Apnea - relay checker: STOP Sleep Apnea - relay checker Hx Hypertension No 11/10/23 15:07 Hx Sleep Apnea No 11/10/23 15:07 CPAP No 11/10/23 15:07 BIPAP Do you snore loudly (louder No 11/10/23 15:07 than talking or can be heard Do you often feel tired/ No 11/10/23 15:07 fatigued/ sleepy during daytime? Has anyone observed you stop No 11/10/23 15:07 breathing during sleep? STOP Results Negative 11/10/23 15:07 QUESTION #5 FULL TEXT : Do you snore loudly (louder than talking or can be heard through closed doors)? Tobacco Use History Tobacco Use History - relay checker: Tobacco Use History - relay checker Tobacco Use Smoking Status Current every day smoker 11/10/23 15:07 Hx Tobacco Use Yes 11/10/23 15:07 Years Smoking Packs Smoked per Day Smoking Cessation Date was within the last 15 years Hx Smoking Cessation Date Hx Smoking Cessation Counseling Hematologic Medial History Hematologic Hx - relay checker: Hematologic Medical Hx - document control supervisor Hx of Blood Transfusion No 11/10/23 15:07 Hx of Transfusion in last 3 No 11/10/23 15:07 Months Date of Last Transfusion (if within last 3 months) Ever experience any problems No 11/10/23 15:07 with transfusion(s)? Specify any problems Hx of Preganancy in last 3 N/A 11/10/23 15:07 Months Nurse Filling Out Transfusion DSCHRIBER 11/10/23 15:07 & Questions: Date: 11/10/23 11/10/23 15:07 Time: 15:09 11/10/23 15:07 Patient unable to answer at this time (ie. confused, unrespo /Reproduction History /Reproductive History - relay checker: /Reproductive Hx- relay checker Hx Now No 11/10/23 15:07 Gestational Age (in weeks): EDC: Hx Hx Para Hx Section SAB No 11/10/23 15:07 Active Medications Active Medications: Current Medications Generic Name Dose Route Start Last Admin Trade Name Freq PRN Reason Stop Dose Admin Lactated Ringer's 1,000 mls @ 15 mls/hr 11/14/23 08:30 [facility] Anesthesia Focused Assessment* Airway Assessment Mouth opens: >3 cm Mallampati Score: II Focused Labs Anesthesia Preop lab: CBC WBC 11.5 K/mm3 (4.4-11.0) H 08/26/23 04:18 RBC 4.63 M/mm3 (4.6-6.2) 08/26/23 04:18 Hgb 14.3 g/dL (13.0-16.5) 08/26/23 04:18 Hct 41.2 % (40-54) 08/26/23 04:18 Plt Count 184 K/mm3 (150-450) 08/26/23 04:18 CHEMISTRY Potassium 3.5 mmol/L (3.5-5.1) 08/26/23 04:18 Sodium 142 mmol/L (136-145) 08/26/23 04:18 Magnesium 3.7 mg/dL (1.6-2.6) H 08/24/23 08:40 BUN 33 mg/dL (7-18) H 08/26/23 04:18 Creatinine 1.41 mg/dL (0.70-1.30) H 08/26/23 04:18 Glucose 275 mg/dL (74-106) H 08/26/23 04:18 COAG PT 15.8 SECONDS (11.7-14.9) H 08/24/23 08:40 Review of Systems (Anesthesia) ROS Narrative System reviewed and no additional complaints, except as documented. [facility] Medical History Wears partial dentures Insulin dependent diabetes mellitus Dietary restriction Chewing tobacco dependence History of echocardiogram History of stress test Cardiology follow-up encounter Rectal bleeding Acute pancreatitis LONI (acute kidney injury) High cholesterol Non-sustained ventricular tachycardia Atrial fibrillation with RVR Leukocytosis Hyperglycemia Acute renal failure DKA (diabetic ketoacidosis) Home Medications ?Medication ?Instructions ?Recorded ?Last Taken ?Type pen needle, diabetic 31 gauge x #100 ea 08/26/23 Unknown Rx 1/3 apixaban 5 mg tablet (Eliquis) 5 mg PO BID #180 tabs 09/21/23 11/10/23 Rx atorvastatin 80 mg tablet 80 mg PO QHS #90 tabs 09/21/23 Unknown Rx metoprolol tartrate 25 mg tablet 25 mg PO BID #180 tabs 09/21/23 Unknown Rx insulin glargine-yfgn 100 unit/mL 27 unit subcut BID 11/10/23 11/14/23 History (3 mL) subcutaneous pen insulin lispro 100 unit/mL 12 unit subcut TIDAC 11/10/23 Unknown History subcutaneous pen (Humalog KwikPen (U-100) Insulin) Allergy/AdvReac Type Severity Reaction Status Date / Time No Known Allergies Allergy Verified 11/14/23 08:39 Family History Brother CVA (cerebral vascular accident) Uncle Diabetes Social History Smoking Status: Current every day smoker tobacco type: smokeless tobacco alcohol intake: never
[2023-11-14] MEDS: Lactated Ringers 1,000 ML 15 ML IV (08:50)
[2023-11-14 09:15] LABS: Bedside Glucose 108 mg/dL (74-106)
--- NOTE | 2023-11-14 09:59 | PCM.POST.ANE ---
Anesthesia: Postop Eval I Current Vital Signs Temperature: 97.5 F Pulse Rate: 72 Blood Pressure: 122/107 Respiratory Rate: 16 Pulse Ox: 96 Oxygen Delivery Method: Room Air Assessment Airway patent: Yes Spontaneous unlabored respirations: Yes Mental status: Awake nausea: No Vomiting: No Anesthesia Complication: No Fluid Hydration Crystalloid volume administer (ml): 500 Total IV fluid infused: 500 Progress Note Anesthesia document: Postop Eval 1 completed: Yes
--- NOTE | 2023-11-14 10:01 | OP.CCLET_ITS ---
11/14/2023 Pushpa Muñoz [facility] Re : Colonoscopy procedure for Kaden Wright [facility] This procedure was performed on Tuesday, November 14, 2023. My impressions and recommendations are as follows: Impressions : - Non-thrombosed external hemorrhoids, non-thrombosed internal hemorrhoids and internal hemorrhoids that prolapse with straining, but spontaneously regress to the resting position (Grade II) found on digital rectal exam. Based upon the patient's history and presentation I believe that the rectal bleeding that he has had is secondary to internal hemorrhoids. He is not actively bleeding today. - Diverticulosis in the sigmoid colon. - The examination was otherwise normal. - No specimens collected. Recommendations : - Discharge patient to home. - Resume previous diet. - Continue present medications. - Repeat colonoscopy in 10 years for screening purposes. - Return to my office in 1 week if bleeding persists and you want to discuss surgical treatment for bleeding hemorrhoids My findings are described in the full procedure note, which is enclosed. If I can be of further assistance, please feel free to contact me at Doctor phone number(s): Work: . Sincerely, Wilber Dodd MD 11/14/2023 10:01:10 AM This report has been signed electronically.
--- NOTE | 2023-11-14 10:01 | OP.COLON_ITS ---
Patient Name: Kaden Santos Procedure Date: 11/14/2023 9:32 AM Date of : 1965 Age: 57 Procedure: Colonoscopy Indications: Rectal bleeding Providers: Wilber Dodd MD Medicines: See the Anesthesia note for documentation of the administered medications Patient Profile: Last Colonoscopy: none. The patient's first colonoscopy is today. Complications: No immediate complications. Procedure: Pre-Anesthesia Assessment: - Prior to the procedure, a History and Physical was performed, and patient medications and allergies were reviewed. The patient's tolerance of previous anesthesia was also reviewed. The risks and benefits of the procedure and the sedation options and risks were discussed with the patient. All questions were answered, and informed consent was obtained. Prior Anticoagulants: The patient has taken Eliquis (apixaban), last dose was 3 days prior to procedure. ASA Grade Assessment: II - A patient with mild systemic disease. After reviewing the risks and benefits, the patient was deemed in satisfactory condition to undergo the procedure. After I obtained informed consent, the scope was passed under direct vision. Throughout the procedure, the patient's blood pressure, pulse, and oxygen saturations were monitored continuously. The Colonoscope was introduced through the anus and advanced to the cecum, identified by appendiceal orifice and ileocecal valve. The colonoscopy was performed without difficulty. The patient tolerated the procedure well. The quality of the bowel preparation was adequate to identify polyps. The ileocecal valve was photographed. Scope In: 9:37:03 AM Scope Withdrawal Time 0 hours 11 minutes 55 seconds Scope Out: 9:54:57 AM Total Procedure Duration Time 0 hours 17 minutes 54 seconds Findings: The digital rectal exam findings include non-thrombosed external hemorrhoids, non-thrombosed internal hemorrhoids and internal hemorrhoids that prolapse with straining, but spontaneously regress to the resting position (Grade II). Pertinent negatives include normal prostate (size, shape, and consistency). Multiple diverticula were found in the sigmoid colon. The exam was otherwise without abnormality. Impression: - Non-thrombosed external hemorrhoids, non-thrombosed internal hemorrhoids and internal hemorrhoids that prolapse with straining, but spontaneously regress to the resting position (Grade II) found on digital rectal exam. Based upon the patient's history and presentation I believe that the rectal bleeding that he has had is secondary to internal hemorrhoids. He is not actively bleeding today. - Diverticulosis in the sigmoid colon. - The examination was otherwise normal. - No specimens collected. Recommendation: - Discharge patient to home. - Resume previous diet. - Continue present medications. - Repeat colonoscopy in 10 years for screening purposes. - Return to my office in 1 week if bleeding persists and you want to discuss surgical treatment for bleeding hemorrhoids Procedure Code(s): --- Professional --- 29381, Colonoscopy, flexible; diagnostic, including collection of specimen(s) by brushing or washing, when performed (separate procedure) Diagnosis Code(s): --- Professional --- K64.1, Second degree hemorrhoids K64.4, Residual hemorrhoidal skin tags K62.5, Hemorrhage of anus and rectum K57.30, Diverticulosis of large intestine without perforation or abscess without bleeding CPT copyright 2021 [employer]. All rights reserved. The codes documented in this report are preliminary and upon sign poster review may be revised to meet current compliance requirements. Wilber Dodd MD 11/14/2023 10:01:10 AM This report has been signed electronically. Number of Addenda: 0 Note Initiated On: 11/14/2023 9:32 AM
--- NOTE | 2023-11-14 12:36 | PCM.POSTANE2 ---
Anesthesia Postop Eval I Sum Postop Eval Completion status Anesthesia document: Postop Eval 1 completed: Yes Anesthesia Postop Eval I Summary Anesthesia Postop Eval I Summary: Anesthesia Postop Eval I: Assessment Summary Airway patent Yes 11/14/23 10:02 [email or web address] Spontaneous unlabored Yes 11/14/23 10:02 [email or web address] respirations Mental status Awake 11/14/23 10:02 [email or web address] nausea No 11/14/23 10:02 [email or web address] Vomiting No 11/14/23 10:02 [email or web address] Anesthesia Postop Eval I: Fluid Summary Crystalloid volume administer 500 11/14/23 10:02 [email or web address] (ml) Colloids volume administered ( ml) Blood Product volume administered (ml) Total IV fluid infused 500 11/14/23 10:02 [email or web address] Anesthesia Postop Eval I: Summary Notes Anesthesia Complication No 11/14/23 10:02 [email or web address] Anesthesia Complication Comment: Post-operative progress note Anesthesia: Postop Eval II Evaluation Mental status: Awake Pain Level: 0 nausea: No Vomiting: No Complications Anesthesia Complication: No
== END 2023-11-14 10:35 | disposition home or self-care (01) ==
LOC: EN 08:02 → AC 08:03
PROVIDERS: Visit Provider Surgery
PROC: 0DJD8ZZ Inspection of Lower Intestinal Tract, Via Natural or Artificial Opening Endoscopic (ICD-10-PCS; CPT 45378; principal; 2023-11-14 08:55)
DX: Z12.11 Encounter for screening for malignant neoplasm of colon (principal); I48.91 Unspecified atrial fibrillation; E11.9 Type 2 diabetes mellitus without complications; Z79.4 Long term (current) use of insulin; K64.4 Residual hemorrhoidal skin tags; K57.30 Diverticulosis of large intestine without perforation or abscess without bleeding; E78.00 Pure hypercholesterolemia, unspecified; K62.5 Hemorrhage of anus and rectum; Z79.01 Long term (current) use of anticoagulants; Z79.899 Other long term (current) drug therapy; K64.1 Second degree hemorrhoids
CPT/HCPCS: 45378; 82962; J7120; J2405

== ENCOUNTER → 2023-11-29 | Outpatient (CLI) | payer MEDICAID, SELFPAY ==
[2023-11-29 11:20] LABS: Absolute Lymphocyte Count 1.31 X10^3/uL (0.83-4.51); Absolute Neutrophil Count 3.9 X10^3/uL (2.0-7.7); Basophil# 0.06 X10^3/uL; Eosinophil# 0.12 X10^3/uL; Hematocrit 47.2 % (40-54); Hemoglobin 15.9 g/dL (13.0-16.5); Lymphocyte # 1.31 X10^3/ul (0.83-4.51); Lymphocyte % 21.6 % (19-41); Mean Corp Hgb Conc 33.7 g/dL (32-36); Mean Corpuscular Hgb 30.6 pg (27.0-32.0); Mean Corpuscular Volume 90.8 fL (80-94); Mean Platelet Vol. 9.9 fl (6.2-12.0); Monocyte# 0.65 X10^3/uL; Monocyte% 10.7 % (0-10); NRBC Flagged by Analyzer 0 % (0-5); Neutrophil % 64.4 % (47-70); Platelet Count 210 K/mm3 (150-450); RBC Distribution Width CV 12.1 % (11.6-14.6); RBC Distribution Width SD 39.8 fl (35.1-43.9); White Blood Count 6.1 K/mm3 (4.4-11.0)
[2023-11-29 11:38] LABS: AST(SGOT) 13 U/L (15-37); Alanine Aminotransfer ALT/SGPT 36 U/L (16-61); Albumin, Serum 3.9 g/dL (3.2-5.0); Alkaline Phosphatase 76 U/L (45-117); Anion Gap 8 (5-15); BUN 31 mg/dL (7-18); Calcium,Total 9.3 mg/dL (8.5-10.1); Chloride 110 mmol/L (98-107); Cholesterol 97 mg/dL (200); EST Glomerular Filtration Rate 82 mL/min (>60); Est Glom Filt Rate - Afr Amer 99 mL/min (>60); Globulin 3.8 g/dL (2.2-4.2); Glucose 126 mg/dL (74-106); High Density Lipoprotein 33 mg/dL; Potassium 4.1 mmol/L (3.5-5.1); Protein, Total 7.7 g/dL (6.4-8.2); Sodium Level 140 mmol/L (136-145); Thyroid Stim Hormone (TSH) 1.96 uIU/mL (0.358-3.74); Triglycerides 97 mg/dL; Very Low Density Lipoprotein 19 mg/dL (5-40)
[2023-11-29 11:43] LABS: Microalbumin,Random Urine 13.8 mg/L (NO RANGE EST.)
== END | disposition home or self-care (01) ==
LOC: VSLAB 10:26
PROVIDERS: PCP Nurse Practitioner Family; Visit Provider Nurse Practitioner Family
DX: E78.5 Hyperlipidemia, unspecified (principal); I48.0 Paroxysmal atrial fibrillation; E11.9 Type 2 diabetes mellitus without complications
CPT/HCPCS: 36415; 80053; 80061; 82043; 84443; 85025

== ENCOUNTER → 2024-02-22 | Outpatient (CLI) | payer MEDICAID, SELFPAY ==
--- NOTE | 2024-02-22 09:43 | ECHOL_ITS ---
Reason For Study: Dilated CMP Procedure This was a limited 2D transthoracic echocardiogram. Exam performed in department. Left Ventricle Normal LV size. The left ventricular ejection fraction is 55 %. Mild segmental systolic dysfunction (see wall motion). [place] : Hypokinetic. Right Ventricle Normal RV size. Normal systolic function. Atria The left atrium is mildly enlarged. Normal right atrium. Mitral Valve Normal mitral valve. Tricuspid Valve Normal tricuspid valve. Aortic Valve Trisinus/trileaflet aortic valve. Pulmonic Valve Normal pulmonic valve. Great Vessels Normal aortic root. The pulmonary artery is normal size. Normal inferior vena cava. Pericardium/Pleural No pericardial effusion. MMode/2D Measurements & Calculations LVIDd: 5.2 cm IVSd: 1.2 cm LA dimension: 4.1 cm LVIDs: 3.9 cm LVPWd: 1.0 cm FS: 24.6 % LAV(MOD-bp): 86.9 ml LVAd ap4: 34.2 cm2 SV(MOD-sp4): 59.3 ml LAV(MOD-bp) Indexed: 35.8 ml/m2 LVLd ap4: 8.3 cm LAV(MOD-sp2): 91.5 ml EDV(MOD-sp4): 110.3 ml LAV(MOD-sp4): 70.9 ml EDV(sp4-el): 119.2 ml LVAs ap4: 21.9 cm2 LVLs ap4: 7.7 cm ESV(MOD-sp4): 51.1 ml ESV(sp4-el): 53.0 ml EF(MOD-sp4): 53.7 % EF(sp4-el): 55.6 % SV(sp4-el): 66.3 ml LA A4 area: 24.0 cm2 RA A4 area: 20.7 cm2 Doppler Measurements & Calculations MR max mario: 473.1 cm/sec MR max P.5 mmHg ECHO/Echo, Limited Study Interpretation Summary The left ventricular ejection fraction is 55 %. Normal LV size. The left atrium is mildly enlarged. Mild segmental systolic dysfunction (see wall motion). Compared to previous study, the left ventricular systolic function has improved .. Ordering Physician: Amanda Nettles Referring Physician: Amanda Nettles Performed By: Doug Recinos and Student
== END | disposition home or self-care (01) ==
LOC: CVS 09:41
PROVIDERS: PCP Nurse Practitioner Family; Referring Provider Physician Assistant Medical; Visit Provider Physician Assistant Medical
DX: I42.9 Cardiomyopathy, unspecified (principal)
CPT/HCPCS: 93308

== ENCOUNTER → 2024-05-08 | Outpatient (CLI) | payer BC, SELFPAY ==
[2024-05-08 12:52] LABS: Absolute Lymphocyte Count 0.91 X10^3/uL (0.83-4.51); Absolute Neutrophil Count 5.3 X10^3/uL (2.0-7.7); Basophil# 0.05 X10^3/uL; Basophil% 0.7 % (0-1); Eosinophil# 0.05 X10^3/uL; Eosinophils% 0.7 % (0-5); Hematocrit 47.2 % (40-54); Lymphocyte # 0.91 X10^3/ul (0.83-4.51); Mean Corp Hgb Conc 33.9 g/dL (32-36); Mean Corpuscular Hgb 30.2 pg (27.0-32.0); Mean Corpuscular Volume 89.1 fL (80-94); Mean Platelet Vol. 10.2 fl (6.2-12.0); Monocyte# 0.68 X10^3/uL; Monocyte% 9.7 % (0-10); NRBC Flagged by Analyzer 0 % (0-5); Neutrophil # 5.27 X10^3/uL (2.7-7.7); Neutrophil % 75.6 % (47-70); Platelet Count 204 K/mm3 (150-450); RBC Distribution Width CV 13.2 % (11.6-14.6); RBC Distribution Width SD 43.2 fl (35.1-43.9)
[2024-05-08 13:33] LABS: Vitamin B12 366 pg/mL (211-911)
[2024-05-08 14:14] LABS: ALB/GLOB Ratio 1.1 RATIO (0.9-2.4); AST(SGOT) 16 U/L (15-37); Alanine Aminotransfer ALT/SGPT 27 U/L (16-61); Albumin, Serum 3.9 g/dL (3.2-5.0); Alkaline Phosphatase 78 U/L (45-117); Anion Gap 7 (5-15); BUN 17 mg/dL (7-18); BUN/Creat Ratio 22.3 RATIO (10-20); Calcium,Total 9.6 mg/dL (8.5-10.1); Chloride 110 mmol/L (98-107); Cholesterol 98 mg/dL (200); Creatinine, Serum 0.76 mg/dL (0.70-1.30); EST Glomerular Filtration Rate 111 mL/min (>60); Est Glom Filt Rate - Afr Amer 135 mL/min (>60); Globulin 3.4 g/dL (2.2-4.2); Glucose 112 mg/dL (74-106); High Density Lipoprotein 43 mg/dL; PSA,Total - Annual Screen 0.87 ng/mL (0.00-4.00); Potassium 3.8 mmol/L (3.5-5.1); Protein, Total 7.3 g/dL (6.4-8.2); Sodium Level 141 mmol/L (136-145); Triglycerides 108 mg/dL; Very Low Density Lipoprotein 22 mg/dL (5-40)
[2024-05-08 19:26] LABS: Microalbumin,Random Urine 7.5 mg/L (NO RANGE EST.)
== END | disposition home or self-care (01) ==
LOC: VSLAB 11:52
PROVIDERS: PCP Nurse Practitioner Family; Visit Provider Nurse Practitioner Family
DX: E78.5 Hyperlipidemia, unspecified (principal); I48.0 Paroxysmal atrial fibrillation; E11.9 Type 2 diabetes mellitus without complications; E56.9 Vitamin deficiency, unspecified; Z12.5 Encounter for screening for malignant neoplasm of prostate
CPT/HCPCS: 36415; 80053; 80061; 82043; 82306; 82607; 84153; 84443; 85025; G0103